=== PATIENT | female | born 1950 | race Caucasian/White ===

== ENCOUNTER → 2016-07-17 | Outpatient (CLI) | payer MEDICARE, OTHER ==
[2016-07-17 11:04] LABS: Blood Urea Nitrogen 15 mg/dL (7-17); Non-African American GFR(MDRD) >60 (>60 ml/min/1.73 sqM)
--- NOTE | 2016-07-17 12:35 | CT ---
EXAMINATION TYPE: CT Chest Abd Pelvis w con DATE OF EXAM: 07/17/2016 12:16 PM COMPARISON: CT CAP July 27, 2015 HISTORY: Patient in for follow up on breast cancer, taking oral cancer chemotherapy drug CT DLP: 2080 mGycm Automated exposure control for dose reduction was used. CONTRAST: CT scan of the chest, abdomen and pelvis is performed with Oral Contrast and with IV Contrast, patien t injected with 100 mL of Omnipaque 300. FINDINGS: LUNGS: The lungs are grossly clear, there is no concerning parenchymal mass or nodule identified. T here is no pleural effusion or pneumothorax seen. The tracheobronchial tree is patent. MEDIASTINUM: There are no greater than 1 cm hilar or mediastinal lymph nodes. No cardiomegaly or pe ricardial effusion is seen. OTHER: Surgical changes from left-sided mastectomy are redemonstrated with absent left breast and le ft axillary surgical clips, additional clips medially in left chest wall are present. There is interv al removal of left breast collapsed implant. Slightly prominent fibroglandular tissue medially and in feriorly in right breast on image 32 is unchanged from prior exam. No new suspicious bilateral axilla ry adenopathy is present. LIVER/GB: No significant abnormality is appreciated. PANCREAS: No significant abnormality is seen. SPLEEN: No significant abnormality is seen. ADRENALS: No significant abnormality is seen. KIDNEYS: No significant abnormality is seen. BOWEL: The oral contrast reaches level of the distal left colon. There is no suspicious small or lar ge bowel dilatation seen. There may be some polyps in the second portion of duodenum near ampulla see n best on coronal image 47 for reference. Some diverticula are seen in the left and the sigmoid colon . No acute diverticulitis is present. REPRODUCTIVE ORGANS: No gross abnormality seen. LYMPH NODES: No greater than 1 cm abdominal or pelvic lymph nodes are appreciated. OSSEOUS STRUCTURES: Moderate to advanced degenerative changes in both hips with spurring as well as s ubchondral cystic change, and axial joint space loss is redemonstrated. There is marked disc space na rrowing with vacuum disc phenomenon at lumbosacral junction. There is moderate multilevel spurring in the midthoracic spine. OTHER: There is moderate sized fat-containing umbilical hernia redemonstrated IMPRESSION: No worrisome mass or adenopathy is seen to suggest neoplastic recurrence.
== END | disposition home or self-care (01) ==
LOC: RADCTMAIN 10:18
PROVIDERS: ATTEND Internal Medicine Hematology & Oncology
DX: C50.512 Malignant neoplasm of lower-outer quadrant of left female breast (principal)
CPT/HCPCS: 82565; 84520; 71260; 74177; 36415; Q9967

== ENCOUNTER → 2017-04-19 | Outpatient (CLI) | payer MEDICARE, OTHER ==
--- NOTE | 2017-04-19 13:30 | MM ---
Reason for exam: additional evaluation requested from prior study. Last mammogram was performed 1 year ago. History: Patient is postmenopausal and has history of breast cancer at age 64. Family history of breast cancer in 2 maternal aunts. Malignant US biopsy breast VAD LT of the left breast, March 29, 2015. Malignant US biopsy breast add'l VAD LT of the left breast, March 29, 2015. Mastectomy of the left breast, 2014. Chemotherapy, 2014. Radiation therapy of the left breast, 2014. Benign ultrasound-guided core biopsy, 2006. Excisional biopsy of the right breast. Took hormonal contraceptives for 14 years beginning at age 19. Taking antineoplastic for 2 years beginning at age 64. Physical Findings: Nurse did not find any significant physical abnormalities on exam. MG 3D Diag Mammo W/Cad RT CC and MLO view(s) were taken of the right breast. Prior study comparison: April 18, 2016, right breast MG 3d diag mammo w/cad RT. March 29, 2015, left breast MG diagnostic mammo LT wo CAD. The breast tissue is heterogeneously dense. This may lower the sensitivity of mammography. No suspicious calcifications are seen. No significant new findings when compared with previous films. These results were verbally communicated with the patient and result sheet given to the patient on 04/19/17. ASSESSMENT: Benign, BI-RAD 2 RECOMMENDATION: Follow-up diagnostic mammogram of the right breast in 1 year.
== END | disposition home or self-care (01) ==
LOC: RADMAMWWP 12:35
PROVIDERS: ATTEND Internal Medicine Hematology & Oncology
DX: Z08 Encounter for follow-up examination after completed treatment for malignant neoplasm (principal); Z85.3 Personal history of malignant neoplasm of breast
CPT/HCPCS: G0206; G0279

== ENCOUNTER → 2017-07-16 | Outpatient (CLI) | payer MEDICARE, OTHER ==
[2017-07-16 14:14] LABS: Blood Urea Nitrogen 15 mg/dL (7-17)
--- NOTE | 2017-07-16 15:26 | CT ---
EXAMINATION TYPE: CT ChestAbdPelvis w con DATE OF EXAM: 07/16/2017 COMPARISON: 07/17/2016 HISTORY: Follow up Breast cancer CT DLP: 1322.8 mGycm Automated exposure control for dose reduction was used. CONTRAST: CT scan of the chest, abdomen and pelvis is performed with Oral Contrast and with IV Contrast, patien t injected with 100 mL of Omnipaque 300. FINDINGS: LUNGS: The lungs are grossly clear, there is no concerning parenchymal mass or nodule identified. T here is no pleural effusion or pneumothorax seen. The tracheobronchial tree is patent. MEDIASTINUM: There are no greater than 1 cm hilar or mediastinal lymph nodes. No pericardial effusi on is seen. OTHER: Surgical changes from left-sided mastectomy are redemonstrated with absent left breast and le ft axillary surgical clips, additional clips medially in left chest wall are present. LIVER/GB: No significant abnormality is appreciated. PANCREAS: No significant abnormality is seen. SPLEEN: No significant abnormality is seen. ADRENALS: No significant abnormality is seen. KIDNEYS: No significant abnormality is seen. BOWEL: Diverticulosis of the colon noted.. LYMPH NODES: No greater than 1 cm abdominal or pelvic lymph nodes are appreciated. Stable shotty jim opathy in the left cardiophrenic angle. OSSEOUS STRUCTURES: Multilevel degenerative change of the spine noted. Arthropathy of the hips seen. Sclerosis of the pars of L5 suggestive of early pars defects and stress injury. No spondylolisthesis. . OTHER: Moderate to advanced degenerative changes in both hips with spurring as well as subchondral cy stic change, and axial joint space loss is redemonstrated. There is marked disc space narrowing with vacuum disc phenomenon at lumbosacral junction. There is moderate multilevel spurring in the midthora cic spine. Fat-containing anterior abdominal wall hernia noted. Small cyst in the left ovarian region measuring 1.3 cm retrospectively stable. IMPRESSION: 1. No diagnostic evidence of metastases. 2. Stable cyst in the left adnexa likely ovarian measuring 1.3 cm
== END | disposition home or self-care (01) ==
LOC: RADCTMAIN 13:24
PROVIDERS: ATTEND Internal Medicine Hematology & Oncology
DX: Z03.89 Encounter for observation for other suspected diseases and conditions ruled out (principal); C50.512 Malignant neoplasm of lower-outer quadrant of left female breast; N83.202 Unspecified ovarian cyst, left side; Z88.0 Allergy status to penicillin; Z88.8 Allergy status to other drugs, medicaments and biological substances
CPT/HCPCS: 82565; 84520; 71260; 74177; 36415; Q9967

== ENCOUNTER → 2017-10-18 | Outpatient (CLI) | payer MEDICARE, OTHER ==
--- NOTE | 2017-10-18 11:04 | BD ---
EXAMINATION TYPE: MG DEXA axial skeleton. DATE OF EXAM: 10/18/2017 COMPARISON: NONE CLINICAL HISTORY: 67 YR OLD FEMALE.....ICD-10 CODE: C50.512 BREAST CA, Z79.890 POST OLAF/HRT Height: 65.2 Weight: 197 FRAX RISK QUESTIONS: Alcohol (3 or more units per day): NO Family History (Parent hip fracture): NO Glucocorticoids (More than 3mos): NO (Ex: prednisone, prednisolone, methylprednisolone, dexamethasone, and hydrocortisone). History of Fracture in Adulthood: NO Secondary Osteoporosis: NO 1. Type 1 Diabetes: NO 2. Hyperthyroidism: NO 3. Menopause before 45: NO 4. Malnutrition: NO 5. Chronic liver disease: NO Rheumatoid Arthritis: NO Current Tobacco Use: NO RISK FACTORS HISTORY OF: Family History of Osteoporosis: NONE KNOWN Active: NOT REALLY Diet low in dairy products/other sources of calcium: NO Postmenopausal woman: YES AT AGE 57 YRS OLD Lost more than 2 inches in height since high school: YES Hyperparathyroidism: NO Adrenal Insufficiency: NO MEDICATIONS: Additional Medications: HX OF CHEMO AND RADIATION, FEMARA, BP MEDS, XANAX, STATINS FOR CHOLESTEROL, R EFLUX MEDS, NSAIDS, Additional History: HX OF LT BREAST CA, ARTHRITIS EXAM MEASUREMENTS: Bone mineral densitometry was performed using the Cylance System. Bone mineral density as measured about the Lumbar spine is: ----- L1-L4(G/cm2): 1.259 T Score Values are as follows: ----- L1: 0.8 ----- L2: 0.9 ----- L3: 0.5 ----- L4: 0.3 ----- L1-L4: 0.7 Bone mineral density FIRST BONE DENSITY AT [facility] Bone mineral density about the R hip (g/cm2): 0.962 Bone mineral density about the L hip (g/cm2): 1.040 T Score values are as follows: -----R Neck: -0.5 -----L Neck: 0.0 -----R Total: -0.4 -----L Total: 0.3 Bone mineral density FIRST BONE DENSITY AT [facility] FRAX%S: THERE IS A 7.1% CHANCE OF A MAJOR OSTEOPOROTIC FX AND A 0.4% FOR HIP FX......PROBABILITY O F FX IN 10 YRS TIME IMPRESSION: Normal (Values between +1 and -1 indicate normal bone mass). Consider repeating this study in 5 year s or sooner if there is some new clinical indication. NOTE: T-SCORE=SD OF THE YOUNG ADULT MEAN.
== END | disposition home or self-care (01) ==
LOC: RADBDWWP 09:41
PROVIDERS: ATTEND Internal Medicine Hematology & Oncology
DX: C50.512 Malignant neoplasm of lower-outer quadrant of left female breast (principal); N95.1 Menopausal and female climacteric states; Z79.890 Hormone replacement therapy
CPT/HCPCS: 77080

== ENCOUNTER → 2018-04-22 | Outpatient (CLI) | payer MEDICARE, OTHER ==
--- NOTE | 2018-04-22 13:17 | MM ---
Reason for exam: additional evaluation requested from prior study. Last mammogram was performed 1 year ago. History: Patient is postmenopausal and has history of breast cancer at age 64. Family history of breast cancer in 2 maternal aunts. Malignant US biopsy breast VAD LT of the left breast, March 29, 2015. Malignant US biopsy breast add'l VAD LT of the left breast, March 29, 2015. Mastectomy of the left breast, 2014. Chemotherapy, 2014. Radiation therapy of the left breast, 2014. Benign ultrasound-guided core biopsy, 2006. Excisional biopsy of the right breast. Took hormonal contraceptives for 14 years beginning at age 19. Taking antineoplastic for 3 years beginning at age 64. Physical Findings: Nurse Summary: 1cm nodule in the right breast at 12 o'clock (nurse mj). MG 3D Diag Mammo W/Cad RT CC and MLO view(s) were taken of the right breast. Prior study comparison: April 19, 2017, right breast MG 3d diag mammo w/cad RT. April 18, 2016, right breast MG 3d diag mammo w/cad RT. The breast tissue is heterogeneously dense. This may lower the sensitivity of mammography. 11-12 o'clock palpable marker. Some underlying focal asymmetries appear more defined on 3D but are not clearly seen on lateral. Ultrasound recommended. These results were verbally communicated with the patient and result sheet given to the patient on 04/22/18. ASSESSMENT: Incomplete: need additional imaging evaluation, BI-RAD 0 RECOMMENDATION: Ultrasound of the right breast.
--- NOTE | 2018-04-22 13:20 | USB ---
Reason for exam: additional evaluation requested from abnormal screening. History: Patient is postmenopausal and has history of breast cancer at age 64. Family history of breast cancer in 2 maternal aunts. Malignant US biopsy breast VAD LT of the left breast, March 29, 2015. Malignant US biopsy breast add'l VAD LT of the left breast, March 29, 2015. Mastectomy of the left breast, 2014. Chemotherapy, 2015. Radiation therapy of the left breast, 2014. Benign ultrasound-guided core biopsy, 2006. Excisional biopsy of the right breast. Took hormonal contraceptives for 14 years beginning at age 19. Taking antineoplastic for 3 years beginning at age 64. US Breast Limited RT Right limited breast ultrasound including focal area of concern, retroareolar and axilla demonstrates a 3 x 2 x 3mm oval, hypoechoic lesion too small to characterize at 9 o'clock, possibly a tiny cyst for which a 6 month follow up is recommended, a 3 x 2 x 3mm benign, cystic lesion at 10 o'clock, a 3 x 2 x 3mm benign, cystic lesion at 12 o'clock, a 3 x 3 x 3mm benign, cystic lesion at the posterior nipple and benign cyst at the palpable site. These results were verbally communicated with the patient and result sheet given to the patient on 04/22/18. ASSESSMENT: Probably benign, BI-RAD 3 RECOMMENDATION: Ultrasound of the right breast in 6 months.
== END | disposition home or self-care (01) ==
LOC: RADMAMWWP 10:39
PROVIDERS: ATTEND Internal Medicine Hematology & Oncology
DX: Z08 Encounter for follow-up examination after completed treatment for malignant neoplasm (principal); R92.8 Other abnormal and inconclusive findings on diagnostic imaging of breast; Z85.3 Personal history of malignant neoplasm of breast
CPT/HCPCS: 77065; 76642; G0279; 77061

== ENCOUNTER → 2018-06-13 | Outpatient (CLI) | payer MEDICARE, OTHER ==
--- NOTE | 2018-06-13 12:56 | CT ---
EXAMINATION TYPE: CT ChestAbdPelvis w con DATE OF EXAM: 06/13/2018 COMPARISON: NONE HISTORY: Follow up breast cancer. CT DLP: 1347.7 mGycm. Automated Exposure Control for Dose Reduction was Utilized. CONTRAST: CT scan of the thorax, abdomen and pelvis is performed with IV Contrast, patient injected with 100 mL of Isovue 300. FINDINGS: LUNGS: 2 mm groundglass density is seen at the medial right lung base on series 4 image 48, similar t o the prior exam likely related to atelectasis rather than pulmonary nodule. The lungs are grossly cl ear, there is no concerning parenchymal mass identified. There is no pleural effusion or pneumothor ax seen. The tracheobronchial tree is patent. MEDIASTINUM: There are no greater than 1 cm hilar or mediastinal lymph nodes. Nonenlarged epiphrenic lymph node is again noted. No pericardial effusion is seen. OTHER: There is a left breast mastectomy and axillary node dissection. There is strand-like opacity o verlying the anterior compartment of the left upper extremity such as on series 3 image 13 similar to the prior however there is a new 6 mm short axis lymph node just lateral to the subscapularis on ser ies 3 image 20. LIVER/GB: No significant abnormality is appreciated. No focal hepatic lesion is seen. No cholelithias is. PANCREAS: No significant abnormality is seen. No ductal dilatation. SPLEEN: No significant abnormality is seen. No splenomegaly. ADRENALS: No significant abnormality is seen. No nodularity or thickening. KIDNEYS: Kidneys enhance and excrete symmetrically. BOWEL: There is scattered colonic diverticulosis. No pericolonic fat stranding. No dilated large or s mall bowel. GENITAL ORGANS: Hypoattenuated approximately 2.0 cm left adnexal lesion on series 3 image 99 likely r epresents a small cyst. LYMPH NODES: No greater than 1cm abdominal or pelvic lymph nodes are appreciated. OSSEOUS STRUCTURES: Advanced arthropathy of the femoral acetabular joints. OTHER: Mild calcific atheromatous changes are seen of the abdominal aorta and its branches. There is redemonstration of a small ventral hernia. IMPRESSION: 1. New far posterior 6 mm short axis left axillary lymph node. Given the prior left breast cancer con sideration for PET/CT could be given. 2. Probable 2.0 cm left adnexal ovarian cyst, however this could be confirmed with pelvic ultrasound given the interval increase in size from the prior 2018. 3. No new evidence of visceral or osseous metastasis within the chest, abdomen, or pelvis.
== END | disposition home or self-care (01) ==
LOC: RADCTMAIN 10:25
PROVIDERS: ATTEND Internal Medicine Hematology & Oncology
DX: C50.512 Malignant neoplasm of lower-outer quadrant of left female breast (principal); Z88.0 Allergy status to penicillin; Z88.6 Allergy status to analgesic agent
CPT/HCPCS: 82565; 84520; 71260; 74177; 36415; Q9967

== ENCOUNTER → 2018-07-31 | Outpatient (CLI) | payer MEDICARE, OTHER ==
[2018-07-31 15:16] LABS: ALT 34 U/L (9-52); AST 28 U/L (14-36); Albumin 4.4 g/dL (3.5-5.0); Alkaline Phosphatase 65 U/L (38-126); Anion Gap 8 mmol/L; Blood Urea Nitrogen 16 mg/dL (7-17); Calcium 9.8 mg/dL (8.4-10.2); Carbon Dioxide 30 mmol/L (22-30); Chloride 100 mmol/L (98-107); Glucose 94 mg/dL (74-99); Potassium 4.4 mmol/L (3.5-5.1); Sodium 138 mmol/L (137-145); Total Bilirubin 1.2 mg/dL (0.2-1.3); Total Protein 7.1 g/dL (6.3-8.2)
[2018-07-31 15:26] LABS: INR 0.9 (<1.2); Partial Thromboplastin Time 22.7 sec (22.0-30.0); Prothrombin Time 10.1 sec (9.0-12.0)
[2018-07-31 15:29] LABS: HCT 41.5 % (34.0-46.0); HGB 13.3 gm/dL (11.4-16.0); MCH 29.3 pg (25.0-35.0); MCV 91.5 fL (80.0-100.0); Mean Platelet Volume 8.2; Platelet Count 174 k/uL (150-450); RBC 4.53 m/uL (3.80-5.40); RDW 13.5 % (11.5-15.5); WBC 4.8 k/uL (3.8-10.6)
[2018-07-31 15:31] LABS: Appearance,Urine Clear (Clear); Bilirubin,Urine Negative (Negative); Blood,Urine Negative (Negative); Color,Urine Light Yellow; Glucose,Urine (UA) Negative (Negative); Ketones,Urine Negative (Negative); Leukocyte Esterase,Urine Negative (Negative); Nitrite,Urine Negative (Negative); PH, Urine 6.5 (5.0-8.0); Protein,Urine Negative (Negative); Specific Gravity,Urine 1.006 (1.001-1.035); Urobilinogen,Urine <2.0 mg/dL (<2.0)
== END | disposition home or self-care (01) ==
LOC: LABPAT 13:40
PROVIDERS: ATTEND Orthopaedic Surgery
DX: Z01.818 Encounter for other preprocedural examination (principal); Z01.812 Encounter for preprocedural laboratory examination; M16.11 Unilateral primary osteoarthritis, right hip
CPT/HCPCS: 80053; 81003; 85027; 85610; 85730; 87070; 93005

== ENCOUNTER → 2018-08-09 | Outpatient (CLI) | payer MEDICARE, OTHER | LOC: LABPAT 13:03 | PROVIDERS: ATTEND Orthopaedic Surgery | DX: Z01.812 Encounter for preprocedural laboratory examination (principal); M16.11 Unilateral primary osteoarthritis, right hip | CPT/HCPCS: 86850; 86900; 86901 ==

== ENCOUNTER 2018-08-19 10:32 | Inpatient (IN) | payer MEDICARE, OTHER ==
[~2018-08-19 10:32] MED LIST: LIDOCAINE 1% 20 ML VIAL (10MG/ML) FOR IV START INTRADERMA PRN; TRANEXAMIC ACID 1,000 MG in SODIUM CHLORIDE 0.9% 100 ML IVPB ONE; ceFAZolin IN SWFI 2 GM/20 ML SYRINGE IVP ONE; fentaNYL (PF) 50 MCG/ML 2 ML AMP IV PRN
[2018-08-19 11:20] LABS: Glucose,Whole Blood 113 mg/dL (75-99)
[2018-08-19] MEDS: LACTATED RINGERS 1,000 ML IV SCH ×2 (11:20→13:37)
[2018-08-19] MEDS: ONDANSETRON 4 MG/2 ML VIAL IVP ONE ×2 (11:41→16:16)
[2018-08-19] MEDS: MELOXICAM 7.5 MG TAB PO ONE ×2 (11:41→16:16)
[2018-08-19] MEDS: ACETAMINOPHEN TAB 500 MG TAB PO ONE ×2 (11:41→16:15)
[2018-08-19] MEDS ORDERED: ROPIVACAINE 246.25 MG, EPINEPHrine 0.5 MG, KETOROLAC 30 MG, cloNIDine HCL/PF 80 MCG, WA... MISCELLANE ONE ×5 (11:51)
[2018-08-19] MEDS ORDERED: MAGNESIUM HYDROXIDE 2,400 MG/10 ML CUP PO PRN (11:54)
[2018-08-19] MEDS ORDERED: HYDROmorphone 0.5 MG/0.5 ML SYRINGE IVP PRN ×3 (11:54)
[2018-08-19] MEDS ORDERED: hydrOXYzine PAMOATE 25 MG CAP PO PRN (11:54)
[2018-08-19] MEDS ORDERED: ONDANSETRON 4 MG/2 ML VIAL IVP PRN (11:54)
[2018-08-19] MEDS ORDERED: HYDROcodone/APAP 5-325MG 1 EACH TAB PO PRN ×2 (11:54)
[2018-08-19] MEDS ORDERED: NALOXONE 0.4 MG/ML 1 ML VIAL IV PRN (11:54)
[2018-08-19] MEDS ORDERED: DIAZEPAM 5 MG TAB PO PRN (11:54)
[2018-08-19] MEDS ORDERED: DEXAMETHASONE SOD PHOSPHATE 10 MG/ML 1 ML VIAL IV ONE (12:02)
[2018-08-19] MEDS ORDERED: FAMOTIDINE 20 MG/2 ML VIAL IVP ONE (12:03)
[2018-08-19] MEDS ORDERED: HEPARIN SODIUM,PORCINE 10,000 UNIT/ML 1 ML VIAL ONE (13:37)
[2018-08-19] MEDS ORDERED: SODIUM CHLORIDE 0.9% 100 ML BAG ONE (13:37)
[2018-08-19] MEDS ORDERED: PROPOFOL 10 MG/ML 20 ML VIAL IV ONE (13:37)
[2018-08-19] MEDS ORDERED: PHENYLEPHRINE-0.9% NACL SYG 1 MG/10 ML SYRINGE ONE (13:37)
[2018-08-19] MEDS ORDERED: SODIUM CHLORIDE 0.9% IRRIG 1,000 ML BTL IRRIGATION ONE (13:37)
[2018-08-19] MEDS ORDERED: MIDAZOLAM 2 MG/2 ML VIAL ONE (13:37)
[2018-08-19] MEDS ORDERED: TRANEXAMIC ACID 1,000 MG/10 ML VIAL ONE (13:37)
[2018-08-19] MEDS ORDERED: ceFAZolin 3,000 MG in SODIUM CHLORIDE 0.9% IRRIGATIO 3,000 ML IRRIGATION ONE (14:06)
[2018-08-19] MEDS ORDERED: LACTATED RINGERS 1,000 ML IV ONE ×2 (14:50→15:25)
--- NOTE | 2018-08-19 15:11 | P.OP ---
Date of Procedure: 08/19/18 Preoperative Diagnosis: Severe osteoarthritis right hip Postoperative Diagnosis: Severe osteoarthritis right hip Procedure(s) Performed: Right total hip arthroplasty with a direct anterior approach Implants: Edwards and nephew Polarstem size 4 standard Edwards & Nephew R3, 3 hole acetabular shell, 52 mm Edwards & Nephew reflection 6.5 mm cancellus screw, 20 mm, 25 mm Edwards & Nephew R3, XLPE 20 acetabular liner Edwards & Nephew Oxinium femoral head 36 m, +0 All components were press-fit. The articulation is Oxinium on polyethylene. Anesthesia: spinal Surgeon: Giovanni Phillips Manager Animal #1: Adry Mayer Estimated Blood Loss (ml): 150 (66 mL returned with Cell Saver) Pathology: other (Femoral head) Condition: stable Disposition: PACU Indications for Procedure: After failure of conservative treatment we discussed the surgical and nonsurgical treatment options at length. Patient wishes to proceed with a total hip arthroplasty with a direct anterior approach. Complications specific to this procedure were discussed at length, including but not limited to infection, leg length discrepancy, dislocation, and nerve injury. Patient is aware of all these complications and informed consent was obtained Operative Findings: The operative findings are consistent with severe osteoarthritis of the right hip Description of Procedure: Patient was seen and evaluated in the preoperative area, consent was reviewed, and the surgical site was marked with a skin marker. Patient was then brought to the operating room and given prophylactic antibiotics intravenously. 1 g of Tranexamic acid was also given. A spinal anesthetic was administered by the anesthesia department. The patient was then placed on the Galloway table with the bony prominences well-padded. The hip area was then prepped and draped in usual sterile fashion. A universal timeout was then performed, which confirmed the patient's name, surgical site, ALLERGIES, and procedure being performed. Next the incision site was located at 1 cm distal and 1 cm lateral to the anterior superior iliac spine. The skin and subcutaneous tissues were sharply incised. Incision was carefully dissected down to the fascia overlying the tensor fascia andrew muscle. This fascia was then incised in line with the incision. Next, using blunt finger dissection, the tensor fascia andrew muscle was dissected off its investing fascia. The muscle was then carefully retracted laterally with a cobra retractor over the lateral neck of the femur. Next, the circumflex vessels were identified and cauterized using the AquaMantis device. The anterior hip capsule was then exposed. The capsule was then opened and an inverted T fashion. Cobra retractors were then placed intracapsularly. The proximal femur was then visualized. The femoral neck was then osteotomized appropriate level above the lesser trochanter. Small amount of traction was placed with the Galloway table. A small wedge of bone was then removed from the remaining femoral head. Next, using a corkscrew femoral head was easily removed from the acetabulum. On gross visual inspection, the femoral head had complete loss of articular cartilage in multiple periarticular osteophytes. Attention was then turned to the acetabulum. the acetabulum was exposed and any remaining labrum was excised. Sequential reaming of the acetabulum was performed using fluoroscopic guidance. When the appropriate size was reached, a trial was then placed. The position and fit of the trial was checked with fluoroscopy. The trial was then removed. Then, using fluoroscopic guidance, the final implant was impacted at 20 of anteversion and 40 of abduction, and fully seated in the acetabulum. 2 screws were then placed in the acetabulum. Again fluoroscopy was used to check position of the screws. Next, the liner was then impacted, with a 20 elevated liner located in the anterior superior quadrant. Component locking was confirmed. Attention was then directed to the femur. With the aid of the Galloway table, the femur was externally rotated to approximately 130, extended, and abducted under the opposite leg. A side hook was then placed under the proximal femur, and the side hook elevator was used to elevate the proximal femur. Retractors were then placed. A capsular release was performed, as well as a release of the conjoined tendon, which afforded excellent visualization of the proximal femur. Next, a box osteotome was used to lateralize the proximal femur. A launderer hand was then used to locate the femoral canal. Sequential broaching was then performed with appropriate size which afforded excellent fixation in the proximal femur. A trial was then placed with appropriate head and neck, and the hip was gently reduced with the aid of the Galloway table. Fluoroscopy was then used to check position of the components, as well as to ensure equal leg lengths. The hip was then gently dislocated and the trials were then removed. Final implants were then impacted and the hip was again reduced. Final fluoroscopic x-rays confirmed that the components were in anatomic position, as well as equal leg lengths. The hip was also taken through range of motion, and found to be stable. The hip was then copiously irrigated with antibiotic solution with pulsatile lavage. The hip was then irrigated with Irrisept solution. The soft tissues were then injected with a ropivacaine solution, which consisted of 246.25 mg of ropivacaine, 0.5 mg of epinephrine, 30 mg of Toradol, 80 g of clonidine, and 48.45 mL of sterile water, for a total of 100 mL of fluid injected. A second dose of 1 g of Tranexamic acid was also given. the fascia was then closed with 2-0 strata fix suture. The subcutaneous tissue was closed with 3-0 Vicryl. The subcuticular tissue was closed with 3-0 strata fix suture. The skin was then closed with Dermabond glue and a sterile silver dressing. The patient was then transferred to the recovery room in stable condition. The educational assistant CARYN Preston was required due to the complexity of surgery, and the need for skilled surgical services assistant for positioning, draping, exposure, retraction, and closure of the wound.
[2018-08-19] MEDS ORDERED: KETOROLAC 30 MG/ML 1 ML VIAL IVP ONE (15:35)
--- NOTE | 2018-08-19 16:06 | XR ---
Right hip HISTORY: Status post right hip arthroplasty Single frontal view of the right hip submitted. Patient is status post right hip arthroplasty. There is anatomic alignment. Lucency in the soft tissu es compatible with postop change. IMPRESSION: Orthopedic follow-up
[2018-08-19] MEDS: SODIUM CHLORIDE 0.9% 1,000 ML IV SCH (16:16)
[2018-08-19 16:41] VITALS: BMI 31.2
--- NOTE | 2018-08-19 16:47 | FL ---
Fluoroscopy HISTORY: Anterior hip replacement 52 seconds fluoroscopy time supplied to the referring clinician. 2 intraoperative C-arm images docum ent the procedure. See dictated report from orthopedic surgery.
--- NOTE | 2018-08-19 16:52 | XR ---
Limited right hip HISTORY: Right hip arthroplasty 2 intraoperative C-arm images document the procedure
[2018-08-19 17:07] LABS: Glucose,Whole Blood 128 mg/dL (75-99)
[2018-08-19] MEDS ORDERED: traMADol 50 MG TAB PO PRN ×3 (19:14→19:38)
[2018-08-19] MEDS: ceFAZolin IN SWFI 2 GM/20 ML SYRINGE IVP SCH (20:16)
[2018-08-19] MEDS: ASPIRIN 325 MG TAB PO SCH (20:16)
[2018-08-19] MEDS ORDERED: SENNOSIDES-DOCUSATE SODIUM 1 EACH TAB PO SCH (21:00)
[2018-08-20] MEDS: SODIUM CHLORIDE 0.9% 1,000 ML IV SCH ×2 (04:58→07:01)
[2018-08-20] MEDS: LACTATED RINGERS 1,000 ML IV SCH (04:58)
[2018-08-20] MEDS: ceFAZolin IN SWFI 2 GM/20 ML SYRINGE IVP SCH (05:17)
[2018-08-20 06:55] VITALS: BP 109/74; PULSE 82; RESP 16; TEMP 97.9
[2018-08-20] MEDS: ASPIRIN 325 MG TAB PO SCH (07:54)
[2018-08-20 08:12] LABS: Basophils % (A) 0 %; Eosinophils # (A) 0.1 k/uL (0-0.7); Eosinophils % (A) 1 %; HCT 34.3 % (34.0-46.0); HGB 11.5 gm/dL (11.4-16.0); Lymphocytes % (A) 13 %; MCH 30.8 pg (25.0-35.0); MCHC 33.6 g/dL (31.0-37.0); MCV 91.7 fL (80.0-100.0); Mean Platelet Volume 8.1; Monocytes # (A) 0.5 k/uL (0-1.0); Monocytes % (A) 6 %; Neutrophils # (A) 5.9 k/uL (1.3-7.7); Neutrophils % (A) 79 %; Platelet Count 132 k/uL (150-450); RBC 3.74 m/uL (3.80-5.40); RDW 13.5 % (11.5-15.5); WBC 7.6 k/uL (3.8-10.6)
[2018-08-20] MEDS ORDERED: MELOXICAM 7.5 MG TAB PO SCH (09:00)
[2018-08-20] MEDS ORDERED: ACETAMINOPHEN TAB 325 MG TAB PO PRN (09:52)
--- NOTE | 2018-08-20 11:32 | P.DS ---
Providers Date of admission: 08/19/18 10:32 Expected date of discharge: 08/20/18 Attending physician: Giovanni Phillips Consults: 08/19/18 11:54 Consult Physician Routine Consulting Provider: Magen Tse Consult Reason/Comments: medical management Do you want consulting provider notified?: Yes Primary care physician: Ishaan Locke - Discharge Diagnosis(es) (1) Osteoarthritis of right hip Current Visit: Yes Status: Acute (2) Status post total replacement of right hip Current Visit: Yes Status: Acute Hospital Course: This is a 68-year-old female with known history of degenerative arthritis of the right hip. The patient presents for evaluation. After discussion and consideration patient elects to proceed with total hip arthroplasty. The patient is seen preoperatively by Dr. Phillips and medically cleared for surgery by their primary care physician. Patient is admitted to [facility] on 08/19/2018 for total hip arthroplasty. The procedures performed without complication or sequelae. The patient is doing well postoperatively. Labs and vital signs are stable on day of discharge. On day of discharge patient's hip incision is healing well. There is minimal erythema. There is no drainage noted at this time. There is minimal soft tissue swelling to the hip and thigh. Patient has full foot and ankle motion without difficulty or pain. Neurovascular status to the right lower extremity is intact. Patient is discharged home in good condition. Please see med rec for accurate list of home medications. Plan - Discharge Summary Discharge Rx Participant: No New Discharge Prescriptions: New Aspirin 325 mg PO BID #60 tab Sennosides [Senokot] 1 tab PO BID #60 tablet traMADol HCl [Ultram] 1 - 2 tab PO Q6H PRN #56 tab PRN Reason: Pain No Action Pravastatin Sodium 40 mg PO HS Potassium Chloride [Klor-Con 10] 10 meq PO DAILY Hydrochlorothiazide [Hydrodiuril] 25 mg PO QAM Metoprolol Tartrate [Lopressor] 50 mg PO BID ALPRAZolam [Xanax] 0.5 mg PO BID PRN PRN Reason: Anxiety Ibuprofen [Motrin] 600 mg PO Q6HR PRN #100 tab PRN Reason: Pain Letrozole [Femara] 2.5 mg PO DAILY Cetirizine HCl [Zyrtec] 10 mg PO DAILY PRN PRN Reason: sinus issues Acetaminophen [Tylenol Extra Strength] 1,000 mg PO ONCE Discharge Medication List Hydrochlorothiazide [Hydrodiuril] 25 mg PO QAM 04/08/15 [History] Metoprolol Tartrate [Lopressor] 50 mg PO BID 04/08/15 [History] Potassium Chloride [Klor-Con 10] 10 meq PO DAILY 04/08/15 [History] Pravastatin Sodium 40 mg PO HS 04/08/15 [History] ALPRAZolam [Xanax] 0.5 mg PO BID PRN 05/31/15 [History] Ibuprofen [Motrin] 600 mg PO Q6HR PRN #100 tab 06/11/15 [Rx] Letrozole [Femara] 2.5 mg PO DAILY 02/02/16 [History] Cetirizine HCl [Zyrtec] 10 mg PO DAILY PRN 08/12/18 [History] Acetaminophen [Tylenol Extra Strength] 1,000 mg PO ONCE 08/19/18 [History] Aspirin 325 mg PO BID #60 tab 08/20/18 [Rx] Sennosides [Senokot] 1 tab PO BID #60 tablet 08/20/18 [Rx] traMADol HCl [Ultram] 1 - 2 tab PO Q6H PRN #56 tab 08/20/18 [Rx] Follow up Appointment(s)/Referral(s): Ishaan Locke MD [Primary Care Provider] - 08/28/18 9:00 am Giovanni Phillips DO [Doctor of Osteopathic Medicine] - 08/30/18 10:20 am Activity/Diet/Wound Care/Special Instructions: Weightbearing as tolerated with walker. Leave dressing intact. Dressing may be removed by home care nurse or by patient in 10 days. May shower with dressing on. Please follow-up with [facility] in 2 weeks and call with any questions or concerns, . Discharge Disposition: HOME WITH HOME HEALTH SERVICES
--- NOTE | 2018-08-20 13:48 | P.CONS ---
History of Present Illness - Reason for Consult recommendations regarding antidepressive medications - History of Present Illness 62-year-old pleasant female underwent right hip Arthroplasty direct anterior approach, clinically doing well after surgery did pass gas did not move her bowel yet. Patient is bit hypotensive which is expected post surgery. Patient etc. presented in metoprolol as stated and metoprolol and hold hydrochlorothiazide for couple days or more if her blood pressure continues to be low. Patient denied dizziness nausea vomiting abdominal pain fever chills dysuria cough. Review of Systems REVIEW OF SYSTEMS: CONSTITUTIONAL: No fever, no malaise, no fatigue. HEENT: No recent visual problems or hearing problems. Denied any sore throat. CARDIOVASCULAR: No chest pain, orthopnea, PND, no palpitations, no syncope. PULMONARY: No shortness of breath, no cough, no hemoptysis. GASTROINTESTINAL: No diarrhea, no nausea, no vomiting, no abdominal pain. NEUROLOGICAL: No headaches, no weakness, no numbness. HEMATOLOGICAL: Denies any bleeding or petechiae. GENITOURINARY: Denies any burning micturition, frequency, or urgency. MUSCULOSKELETAL/RHEUMATOLOGICAL: Denies any joint pain, swelling, or any muscle pain. ENDOCRINE: Denies any polyuria or polydipsia. The rest of the 14-point review of systems is negative. Past Medical History Past Medical History: Cancer, Diabetes Mellitus, GERD/Reflux, Hyperlipidemia, Hypertension Additional Past Medical History / Comment(s): lt breast cancer 06/15/15, varicose veins, constipation,type II diabetic diet controlled History of Any Multi-Drug Resistant Organisms: None Reported Past Surgical History: Breast Surgery, Tubal Ligation Additional Past Surgical History / Comment(s): core biopsy - breast Mar [id number]. LT MASTECTOMY with lymph node removal developed infection after surgery Past Anesthesia/Blood Transfusion Reactions: Postoperative Nausea & Vomiting ( PONV) Additional Past Anesthesia/Blood Transfusion Reaction / Comm: CLAUSTROPHOBIA. daughter-ponv Past Psychological History: No Psychological Hx Reported Smoking Status: Never smoker Past Alcohol Use History: Occasional Past Drug Use History: None Reported - Past Family History Mother Family Medical History: No Reported History, Diabetes Mellitus Additional Family Medical History / Comment(s): states brother and father also both had diabetes. states father after knee surgery developed gangrene d/t lack of circulation and had amputation below knee Father Family Medical History: Diabetes Mellitus, Hypertension Additional Family Medical History / Comment(s): LEG AMPUTATED Brother(s) Family Medical History: Diabetes Mellitus Medications and Allergies Home Medications Medication Instructions Recorded Confirmed Type Hydrochlorothiazide [Hydrodiuril] 25 mg PO QAM 04/08/15 08/19/18 History Metoprolol Tartrate [Lopressor] 50 mg PO BID 04/08/15 08/19/18 History Potassium Chloride [Klor-Con 10] 10 meq PO DAILY 04/08/15 08/19/18 History Pravastatin Sodium 40 mg PO HS 04/08/15 08/19/18 History ALPRAZolam [Xanax] 0.5 mg PO BID PRN 05/31/15 08/19/18 History Ibuprofen [Motrin] 600 mg PO Q6HR PRN #100 tab 06/11/15 08/19/18 Rx Letrozole [Femara] 2.5 mg PO DAILY 02/02/16 08/19/18 History Cetirizine HCl [Zyrtec] 10 mg PO DAILY PRN 08/12/18 08/19/18 History Acetaminophen [Tylenol Extra 1,000 mg PO ONCE 08/19/18 08/19/18 History Strength] Aspirin 325 mg PO BID #60 tab 08/20/18 Rx Sennosides [Senokot] 1 tab PO BID #60 tablet 08/20/18 Rx traMADol HCl [Ultram] 1 - 2 tab PO Q6H PRN #56 tab 08/20/18 Rx Allergies Allergy/AdvReac Type Severity Reaction Status Date / Time adhesive Allergy Rash/Hives Verified 08/19/18 17:18 Penicillins Allergy Rash/Hives Verified 08/19/18 17:18 sulfamethoxazole Allergy Rash/Hives Verified 08/19/18 17:18 [From Bactrim] trimethoprim [From Bactrim] Allergy Rash/Hives Verified 08/19/18 17:18 codeine AdvReac Nausea & Verified 08/19/18 17:18 Vomiting hydrocodone bitartrate AdvReac Nausea & Verified 08/19/18 17:18 [From [place]] Vomiting prochlorperazine edisylate AdvReac jaw locked Verified 08/19/18 17:18 [From Compazine] prochlorperazine maleate AdvReac JAW LOCKED, Verified 08/19/18 17:18 [From Compazine] Physical Exam Vitals: Vital Signs Temp Pulse Pulse Resp BP Pulse Ox 08/20/18 06:56 16 08/20/18 06:54 97.9 F 82 16 109/74 95 08/20/18 04:00 15 08/20/18 00:14 97.5 F L 80 15 102/64 92 L 08/19/18 23:20 16 08/19/18 20:00 16 08/19/18 18:15 96 134/64 08/19/18 18:00 87 119/66 08/19/18 17:45 82 118/79 08/19/18 17:30 82 110/73 08/19/18 17:15 83 119/71 08/19/18 17:00 80 107/74 08/19/18 16:45 78 131/82 08/19/18 16:30 97.5 F L 89 16 114/73 94 L 08/19/18 16:05 79 16 105/65 97 08/19/18 15:50 76 16 111/61 96 08/19/18 15:35 80 16 124/62 98 08/19/18 15:22 76 16 124/62 97 Intake and Output 08/19/18 08/20/18 08/20/18 22:59 06:59 14:59 Intake Total 180 222 Balance 180 222 Intake: IV 0 Oral 180 222 Other: Voiding Method Toilet Toilet # Voids 1 1 1 PHYSICAL EXAMINATION: GENERAL: The patient is alert and oriented x3, not in any acute distress. Well developed, well nourished. HEENT: Pupils are round and equally reacting to light. EOMI. No scleral icterus. No conjunctival pallor. Normocephalic, atraumatic. No pharyngeal erythema. No thyromegaly. CARDIOVASCULAR: S1 and S2 present. No murmurs, rubs, or gallops. PULMONARY: Chest is clear to auscultation, no wheezing or crackles. ABDOMEN: Soft, nontender, nondistended, normoactive bowel sounds. No palpable organomegaly. MUSCULOSKELETAL: deferred to orthopedic surgery EXTREMITIES: No cyanosis, clubbing, or pedal edema. NEUROLOGICAL: Gross neurological examination did not reveal any focal deficits. SKIN: No rashes. Results CBC & Chem 7: 08/20/18 07:01 Labs: Abnormal Lab Results - Last 24 Hours (Table) 08/19/18 08/20/18 Range/Units 16:55 07:01 RBC 3.74 L (3.80-5.40) m/uL Plt Count 132 L (150-450) k/uL POC Glucose (mg/dL) 128 H (75-99) mg/dL Assessment and Plan Plan: -hypertension: Management as mentioned above -Right total hip arthroplasty postoperative day one: Pain management due to prophylaxis as per primary service -gastroesophageal reflux disease -Hyperlipidemia: Continue with statin Discharge medication the consideration was reviewed patient is medically stable to be discharged.
== END 2018-08-20 14:00 | disposition home or self-care (01) | DRG 470 ==
LOC: 2ORMAIN 10:32 → 4SSUR 16:01
PROVIDERS: ADMIT Orthopaedic Surgery; ATTEND Orthopaedic Surgery
PROC: 0SR906A Replacement of Right Hip Joint with Oxidized Zirconium on Polyethylene Synthetic Substitute, Uncemented, Open Approach (ICD-10-PCS; principal; 2018-08-20)
PROC: 30233N0 Transfusion of Autologous Red Blood Cells into Peripheral Vein, Percutaneous Approach (ICD-10-PCS; 2018-08-20)
DX: M16.11 Unilateral primary osteoarthritis, right hip (principal); E11.9 Type 2 diabetes mellitus without complications; E78.5 Hyperlipidemia, unspecified; F40.240 Claustrophobia; I10 Essential (primary) hypertension; K21.9 Gastro-esophageal reflux disease without esophagitis; I83.90 Asymptomatic varicose veins of unspecified lower extremity; I95.9 Hypotension, unspecified; E78.00 Pure hypercholesterolemia, unspecified; I89.0 Lymphedema, not elsewhere classified; F41.9 Anxiety disorder, unspecified; Z79.811 Long term (current) use of aromatase inhibitors; Z79.82 Long term (current) use of aspirin; Z79.899 Other long term (current) drug therapy; Z90.12 Acquired absence of left breast and nipple; Z85.3 Personal history of malignant neoplasm of breast; Z88.1 Allergy status to other antibiotic agents; Z88.5 Allergy status to narcotic agent; Z88.0 Allergy status to penicillin; Z88.2 Allergy status to sulfonamides; Z88.8 Allergy status to other drugs, medicaments and biological substances; Z91.048 Other nonmedicinal substance allergy status; Z82.49 Family history of ischemic heart disease and other diseases of the circulatory system; Z83.3 Family history of diabetes mellitus
CPT/HCPCS: 73501; 85025; 86850; 86891; 86900; 86901

== ENCOUNTER → 2018-09-03 | Outpatient (CLI) | payer MEDICARE, OTHER | END | disposition home or self-care (01) | LOC: LABPAT 08-09 12:42 | PROVIDERS: ATTEND Orthopaedic Surgery | DX: Z53.9 Procedure and treatment not carried out, unspecified reason (principal) ==

== ENCOUNTER → 2018-12-10 | Outpatient (CLI) | payer MEDICARE, OTHER ==
--- NOTE | 2018-12-10 10:37 | CT ---
EXAMINATION TYPE: CT chest w con DATE OF EXAM: 12/10/2018 COMPARISON: 06/13/2018 HISTORY: Breast Cancer CT DLP: 507 mGycm. Automated Exposure Control for Dose Reduction was Utilized. TECHNIQUE: CT scan of the thorax is performed following with IV Contrast, patient injected with 100 ml mL of Isovue 300. FINDINGS: LUNGS: The there are vaguely seen 2 mm groundglass density at the right lung base on the prior exam h as become a defined pulmonary nodule now measuring 3 mm on series 4 image 29. Ill-defined densities a t the left lower lobe could relate to volume averaging or early formation of pulmonary nodules such a s on image 40. No new discrete pulmonary nodule or pulmonary mass is seen. No focal consolidation, pl eural effusion or pneumothorax. Main tracheobronchial tree is patent. 4 mm lingular area of atelectas is ora nodule is stable. This is at the mediastinal border and alternatively could represent an epica rdial lymph node. This is nonenlarged. MEDIASTINUM: There are no greater than 1 cm hilar or mediastinal lymph nodes. No pericardial effusi on is seen. However fat stranding at the previous site of left axillary node dissection is similar a lthough there is a newly enlarged left axillary lymph node measuring 1 cm in short axis on series 3 i mage 17, previously not enlarged with an adjacent lymph node just superior to this on image 13 measur ing 9 mm in short axis. OTHER: Left mastectomy has been performed. Medial right breast 9 mm asymmetry is stable without hype rdensity to suggest enhancement. Although the liver is not entirely visualized the hepatic parenchyma that is visualized is diffusely hypoattenuated in comparison to that of the spleen, most commonly se en in hepatic steatosis. This finding limits evaluation for hepatic masses. No gross evidence of hepa tic mass is seen. No intrahepatic biliary ductal dilatation. No cholelithiasis and the visualized por tions of the gallbladder. Distal diverticulum of the esophagus is suspected. Moderate multilevel dege nerative changes of the spine. No new suspicious osseous lesion is seen. IMPRESSION: 1. There is a concerning newly enlarged posterior left axillary lymph node on series 3 image 17 measu ring 1 cm in short axis. Adjacent 9 mm short axis lymph node is also seen just cranial to this. Targe hugo ultrasound could be performed with core biopsy or fine needle aspiration. Alternatively PET CT co uld be considered. 2. There are vaguely seen 2 mm groundglass density at the right lung base is becoming more well-defin ed 3 mm pulmonary nodule. Surveillance is recommended for this nodule and faint possibly developing p unctate left basilar pulmonary nodules.
== END ==
LOC: RADCTMAIN 08:39
PROVIDERS: ATTEND Internal Medicine Hematology & Oncology
DX: C50.812 Malignant neoplasm of overlapping sites of left female breast (principal); R91.8 Other nonspecific abnormal finding of lung field
CPT/HCPCS: 82565; 84520; 71260; 36415; Q9967

== ENCOUNTER → 2019-04-23 | Outpatient (CLI) | payer MEDICARE, OTHER ==
--- NOTE | 2019-04-23 13:40 | MM ---
Reason for exam: additional evaluation requested from prior study. Last mammogram was performed 1 year ago. History: Patient is postmenopausal and has history of breast cancer at age 64. Family history of breast cancer in 2 maternal aunts. Malignant US biopsy breast VAD LT of the left breast, March 29, 2015. Malignant US biopsy breast add'l VAD LT of the left breast, March 29, 2015. Mastectomy of the left breast, 2014. Chemotherapy, 2014. Radiation therapy of the left breast, 2014. Benign ultrasound-guided core biopsy, 2006. Excisional biopsy of the right breast. Took hormonal contraceptives for 14 years beginning at age 19. Taking antineoplastic for 3 years beginning at age 64. Physical Findings: Nurse did not find any significant physical abnormalities on exam. MG 3D Diag Mammo W/Cad RT CC and MLO view(s) were taken of the right breast. Prior study comparison: April 22, 2018, right breast MG 3d diag mammo w/cad RT. April 19, 2017, right breast MG 3d diag mammo w/cad RT. The breast tissue is heterogeneously dense. This may lower the sensitivity of mammography. There are benign appearing round dystrophic calcifications in the right breast. There is no discrete abnormality. These results were verbally communicated with the patient and result sheet given to the patient on 04/23/19. ASSESSMENT: Benign, BI-RAD 2 RECOMMENDATION: Follow-up diagnostic mammogram of the right breast in 1 year.
== END | disposition home or self-care (01) ==
LOC: RADMAMWWP 12:52
PROVIDERS: ATTEND Internal Medicine Hematology & Oncology
DX: Z08 Encounter for follow-up examination after completed treatment for malignant neoplasm (principal); Z85.3 Personal history of malignant neoplasm of breast
CPT/HCPCS: 77065; G0279; 77061

== ENCOUNTER → 2019-06-11 | Outpatient (CLI) | payer MEDICARE, OTHER ==
[2019-06-11 13:26] LABS: African American GFR (CKD) >90 (>60 ml/min/1.73 sqM); Blood Urea Nitrogen 22 mg/dL (7-17); Non-African American GFR(CKD) 81 (>60 ml/min/1.73 sqM)
--- NOTE | 2019-06-11 14:25 | CT ---
EXAMINATION TYPE: CT chest w con DATE OF EXAM: 06/11/2019 COMPARISON: 12/10/2018 HISTORY: History of breast cancer, observe for mets. CT DLP: 418.8 mGycm Automated exposure control for dose reduction was used. CONTRAST: CT scan of the chest is performed with IV Contrast, patient injected with 100 mL of Isovue M300. FINDINGS: LUNGS: Stable left lower lobe pulmonary nodule currently measuring 3 mm versus 3 mm previously. Right lower lobe pulmonary nodule measuring 3 mm versus 6 mm previously as well. No new nodules or enlargi ng nodules are evident. There is no pleural effusion or pneumothorax seen. The tracheobronchial tree is patent. MEDIASTINUM: There are no greater than 1 cm hilar or mediastinal lymph nodes. No pericardial effusi on is seen. Thoracic aorta is of normal caliber. The heart is not enlarged. UPPER ABDOMEN: No significant abnormality appreciated. OTHER: Left-sided mastectomy changes. Left axillary lymph node measures 1 cm versus 1 cm previously. More caudally there is a 1.2 cm lymph node current exam versus 1 cm previously. IMPRESSION: 1. Stable pulmonary nodularity without a new nodule or enlarging nodule. 2. Left axillary adenopathy minimally enlarged since prior study as noted above.
== END | disposition home or self-care (01) ==
LOC: RADCTMAIN 12:50
PROVIDERS: ATTEND Internal Medicine Hematology & Oncology
DX: Z03.89 Encounter for observation for other suspected diseases and conditions ruled out (principal); C50.512 Malignant neoplasm of lower-outer quadrant of left female breast; R59.0 Localized enlarged lymph nodes; R91.8 Other nonspecific abnormal finding of lung field
CPT/HCPCS: 82565; 84520; 71260; 36415; Q9967

== ENCOUNTER → 2019-09-22 | Outpatient (CLI) | payer MEDICARE, OTHER | END | disposition home or self-care (01) | DX: R10.11 Right upper quadrant pain (principal) | CPT/HCPCS: 78226; A9537 ==

== ENCOUNTER → 2019-12-18 | Outpatient (CLI) | payer MEDICARE, OTHER ==
--- NOTE | 2019-12-18 14:26 | NM ---
EXAMINATION TYPE: NM bone scan whole body DATE OF EXAM: 12/18/2019 COMPARISON: 04/14/2015 HISTORY: 04/14/2015 Delayed whole-body scanning was performed following the injection of 23.4 mCi Tc 99m MDP. Images acq uired 3 hours post injection. FINDINGS: Abnormal uptake involving the patella on the right and left knee as well as the feet and shoulders co mpatible with arthritic change. Abnormal uptake throughout the thoracic and lumbar spine and cervical spine likely degenerative. Photopenic defect involving the right hip compatible with previous surgery. Abnormal uptake involving the calvarium compatible with hyperostosis. IMPRESSION: 1. Similar distribution of uptake relative to the prior exam. Nonspecific findings involving the vert ebral column are mildly progressed but most likely degenerative and could be correlated with x-ray as clinically warranted.
== END | disposition home or self-care (01) ==
LOC: RADNMMAIN 10:14
PROVIDERS: ATTEND Internal Medicine Hematology & Oncology
DX: Z03.89 Encounter for observation for other suspected diseases and conditions ruled out (principal); C50.512 Malignant neoplasm of lower-outer quadrant of left female breast; M54.9 Dorsalgia, unspecified; Z88.0 Allergy status to penicillin; Z88.8 Allergy status to other drugs, medicaments and biological substances
CPT/HCPCS: 78306; A9503

== ENCOUNTER → 2020-02-09 | Outpatient (CLI) | payer MEDICARE, OTHER ==
--- NOTE | 2020-02-09 15:42 | BD ---
EXAMINATION TYPE: Axial Bone Density DATE OF EXAM: 02/09/2020 COMPARISON: DEXA October 18, 2017 CLINICAL HISTORY: Breast cancer. Postmenopausal female. Height: 5 FT 5 1/2 IN Weight: 221 FRAX RISK QUESTIONS: Alcohol (3 or more units per day): NO Family History (Parent hip fracture): YES Glucocorticoids (More than 3mos): NO (Ex: prednisone, prednisolone, methylprednisolone, dexamethasone, and hydrocortisone). History of Fracture in Adulthood: NO Secondary Osteoporosis: 1. Type 1 Diabetes: NO 2. Hyperthyroidism: NO 3. Menopause before 45: NO 4. Malnutrition: NO 5. Chronic liver disease: NO Rheumatoid Arthritis: NO Current Tobacco Use: NO RISK FACTORS HISTORY OF: Surgery to Spine/Hip(right/left)/Wrist (right/left): RT REPLACEMENT When: 2019 Family History of Osteoporosis: NO Active: YES Postmenopausal woman: AGE 57 Lost more than 2 inches in height since high school: YES MEDICATIONS: Additional Medications: FEMORA, PRAVASTATIN, METOPROLOL, HYDROCHLOROTHIAZIDE, LISINOPRIL, XANAX NEEDED, POTASSIUM OMEPRAZOLE Additional History: BREAST CANCER CHEMO AND RADIATION 2014 EXAM MEASUREMENTS: Bone mineral densitometry was performed using the [employer] System. Bone mineral density as measured about the Lumbar spine is: ----- L1-L4(G/cm2): 1.237 T Score Values are as follows: ----- L2: 0.9 ----- L3: 0.7 ----- L4: -0.1 ----- L1-L4: 0.5 Bone mineral density has: DECREASED -1.0 % since study of: 2017 Bone mineral density about the L hip (g/cm2): 0.973 T Score values are as follows: -----L Neck: -0.5 -----L Total: -0.1 Bone mineral density has: DECREASED -4.0 % since study of: 2017 IMPRESSION: Normal (Values between +1 and -1 indicate normal bone mass) range remains present. Consider repeatin g this study in 5 years or sooner if there is some new clinical indication. NOTE: T-SCORE=SD OF THE YOUNG ADULT MEAN.
== END | disposition home or self-care (01) ==
LOC: RADBDWWP 14:37
PROVIDERS: ATTEND Internal Medicine Hematology & Oncology
DX: N95.1 Menopausal and female climacteric states (principal); Z79.890 Hormone replacement therapy; C50.512 Malignant neoplasm of lower-outer quadrant of left female breast; Z88.0 Allergy status to penicillin; Z88.8 Allergy status to other drugs, medicaments and biological substances
CPT/HCPCS: 77080

== ENCOUNTER → 2020-05-06 | Outpatient (CLI) | payer MEDICARE, OTHER ==
--- NOTE | 2020-05-07 09:34 | MM ---
Reason for exam: additional evaluation requested from prior study. Last mammogram was performed 1 year ago. History: Patient is postmenopausal and has history of breast cancer at age 64. Family history of breast cancer in maternal aunt at age 80 and breast cancer in maternal aunt at age 64. Malignant US biopsy breast VAD LT of the left breast, March 29, 2015. Malignant US biopsy breast add'l VAD LT of the left breast, March 29, 2015. Mastectomy of the left breast, 2014. Chemotherapy, 2014. Radiation therapy of the left breast, 2014. Benign ultrasound-guided core biopsy, 2006. Excisional biopsy of the right breast. Took hormonal contraceptives for 14 years beginning at age 19. Taking antineoplastic for 5 years beginning at age 64. Physical Findings: Nurse did not find any significant physical abnormalities on exam. MG 3D Diag Mammo W/Cad RT CC and MLO view(s) were taken of the right breast. Prior study comparison: April 23, 2019, right breast MG 3d diag mammo w/cad RT. April 22, 2018, right breast MG 3d diag mammo w/cad RT. The breast tissue is heterogeneously dense. This may lower the sensitivity of mammography. Calcifications. No significant new findings when compared with previous films. These results were verbally communicated with the patient and result sheet given to the patient on 05/06/20. ASSESSMENT: Benign, BI-RAD 2 RECOMMENDATION: Routine screening mammogram of the right breast in 1 year.
== END | disposition home or self-care (01) ==
LOC: RADMAMWWP 14:08
PROVIDERS: ATTEND Internal Medicine Hematology & Oncology
DX: Z08 Encounter for follow-up examination after completed treatment for malignant neoplasm (principal); Z85.3 Personal history of malignant neoplasm of breast
CPT/HCPCS: 77065; G0279; 77061

== ENCOUNTER → 2020-06-22 | Outpatient (CLI) | payer MEDICARE, OTHER ==
--- NOTE | 2020-06-22 13:19 | CT ---
EXAMINATION TYPE: CT ChestAbdPelvis w con DATE OF EXAM: 06/22/2020 COMPARISON: Most recent chest CT June 11, 2019 and older CTs HISTORY: follow up breast cancer CT DLP: 1620.1 mGycm. Automated Exposure Control for Dose Reduction was Utilized. CONTRAST: CT scan of the thorax, abdomen and pelvis is performed with IV Contrast, patient injected with 100 mL of Isovue 300. FINDINGS: LUNGS: There is 6 mm posterior right basilar nodule image 50 continues to slowly increase in size fro m last 2 CTs. Enlarging 8 x 4 mm nodule right lower lobe noted axial image 41. Some scattered microno dules redemonstrated. No additional greater than 5 mm pulmonary nodules identified bilaterally. MEDIASTINUM: There are no greater than 1 cm hilar or mediastinal lymph nodes. No cardiomegaly or pe ricardial effusion is seen. OTHER: Left breast is surgically absent. Scar tissue left axilla redemonstrated. There is persistent mild fat stranding and increasing nodularity in the lateral inferior aspect of the axilla below level of surgical clips with persistent 1.0 cm suspicious lesion axial image 20. LIVER/GB: Dependent density consistent with sludge and/or tiny stones PANCREAS: No significant abnormality is seen. SPLEEN: No significant abnormality is seen. ADRENALS: No significant abnormality is seen. KIDNEYS: Symmetric cortical medullary uptake and excretion without concerning renal mass or hydroneph rosis seen bilaterally. BOWEL: Oral contrast reaches level of right colon. No suspicious small or large bowel dilatation. Kavon e diverticula scattered throughout the colon greatest the level of sigmoid colon. GENITAL ORGANS: Uterus surgically absent or atrophic. LYMPH NODES: No greater than 1cm abdominal or pelvic lymph nodes are appreciated. OSSEOUS STRUCTURES: Metallic hardware from total right hip arthroplasty causes streak artifact limiti ng evaluation of pelvic structures new from June 2018 study. There is moderate to severe narrowin g and spurring in the left hip joint redemonstrated. Moderate to severe disc space narrowing and vacu um disc phenomenon lumbosacral junction. OTHER: No significant additional abnormality is seen. IMPRESSION: Persistent suspicious left axillary adenopathy. Slowly enlarging 2 posterior right basila r nodules. Metastatic malignancy cannot be excluded. Consider PET/CT follow-up and or left axillary s ampling.
== END | disposition home or self-care (01) ==
LOC: RADCTMAIN 10:23
PROVIDERS: ATTEND Internal Medicine Hematology & Oncology
DX: C50.512 Malignant neoplasm of lower-outer quadrant of left female breast (principal); R10.84 Generalized abdominal pain; R07.9 Chest pain, unspecified; Z88.0 Allergy status to penicillin; Z88.8 Allergy status to other drugs, medicaments and biological substances
CPT/HCPCS: 71260; 74177; Q9967

== ENCOUNTER → 2020-12-14 | Outpatient (CLI) | payer MEDICARE, OTHER ==
--- NOTE | 2020-12-14 14:59 | CT ---
EXAMINATION TYPE: CT chest wo con DATE OF EXAM: 12/14/2020 COMPARISON: 08/23/2019, 06/11/2019 HISTORY: 70-year-old female C50.512, with history of breast cancer TECHNIQUE: Contiguous axial scanning of the chest without IV contrast. Coronal and sagittal reconstru ctions performed. CT DLP: 330.5 mGycm Automated exposure control for dose reduction was used. FINDINGS: Heart normal size without pericardial effusion. Mild aortic valvular calcifications are present. Aorta normal caliber with conventional arch vessel branching anatomy. Left axillary lymph nodes redemonstrated. These have slightly increased in size measuring 1.5 cm and 8 mm versus 1.2 and 6 mm, previously. Surgical clips compatible with prior left axillary node dissect ion. Status post left mastectomy. Otherwise, no thoracic lymphadenopathy identified. Minimal emphysematous change. Posterior right basilar pulmonary nodule measures 6 mm. While the overa ll size is similar, it shows slightly increasing soft tissue fullness especially comparing back to . This is very indolent behavior but should continue to be monitored. No consolidation or pleu ral effusion. Tiny hiatal hernia. Visualized upper abdomen shows left-sided colonic diverticulosis. Bones: Moderate degenerative disc disease mid thoracic spine. Some anterior bridging endplate spondyl osis lower thoracic spine. No osseous destructive process. IMPRESSION: 1. PRIOR LEFT MASTECTOMY AND LEFT AXILLARY NODE DISSECTION. LYMPH NODES IN THE LOWER LEFT AXILLA SHOW SLIGHT INCREASING SIZE AT 1.5 CM AND 8 MM (VERSUS 1.2 CM AND 6 MM, PREVIOUSLY). CONTINUED FOLLOW-UP RECOMMENDED. 2. POSTERIOR RIGHT BASILAR PULMONARY NODULE MEASURES 6 MM. WHILE THE OVERALL SIZE IS SIMILAR, THERE I S INCREASING SOFT TISSUE FULLNESS TO THE NODULE. AGAIN, CONTINUED SURVEILLANCE RECOMMENDED.
== END | disposition home or self-care (01) ==
LOC: RADCTMAIN 13:47
PROVIDERS: ATTEND Internal Medicine Hematology & Oncology
DX: R91.1 Solitary pulmonary nodule (principal); Z85.3 Personal history of malignant neoplasm of breast
CPT/HCPCS: 71250

== ENCOUNTER → 2020-12-31 | Outpatient (CLI) | payer MEDICARE, OTHER ==
--- NOTE | 2020-12-31 08:16 | USB ---
Ultrasound left axilla INDICATION: Abnormal prior CT in patient with history of left breast cancer status post mastectomy COMPARISON: 12/14/2020 FINDINGS: The left axillary tail was scanned with ultrasound with multiple irregular hypoechoic lesions as deta iled below in centimeters: 0.8 x 0.8 x 1.0 0.5 x 0.5 x 0.3 0.9 x 0.5 x 0.6 1.5 x 0.8 x 0.8, appears deep to the muscle 0.7 x 0.7 x 0.6, appears deep to the muscle IMPRESSION: Multiple irregular hypoechoic lesions in the left axillary tail are suspicious for malignancy. Ultras ound-guided left axillary biopsy of one of the lesions is recommended with management of the others d epending upon biopsy results. BI-RADS 4, suspicious.
== END | disposition home or self-care (01) ==
LOC: RADUSWWP 07:22
PROVIDERS: ATTEND Internal Medicine Hematology & Oncology
DX: N64.59 Other signs and symptoms in breast (principal); Z85.3 Personal history of malignant neoplasm of breast; Z90.12 Acquired absence of left breast and nipple

== ENCOUNTER → 2020-12-31 | Outpatient (CLI) | payer MEDICARE, OTHER ==
--- NOTE | 2021-01-05 07:38 | PE ---
EXAMINATION TYPE: PET CT fusion skull to thigh DATE OF EXAM: 12/31/2020 COMPARISON: CT chest abdomen and pelvis 06/22/2020 Prior PET/CT: None HISTORY: Breast cancer TECHNIQUE: Following the intravenous administration of 7.95 mCi of F-18 FDG, whole body images are p erformed from the skull base to the midthigh. Images are reviewed on the computer in the coronal, ax ial, and sagittal planes. Reconstructed rotating images are created on independent workstation and r eviewed on the computer. A localization and attenuation correction CT is performed in conjunction w ith the PET scan. DLP: 472.27 mGycm SCAN: Initial Blood glucose: 90 mg/dL Average Mediastinum SUV: 1.67 Average Liver SUV: 2.49 FINDINGS: NECK: No abnormal uptake THORAX: There are scattered small lymph nodes within the left axillary region with hyperintense uptak e. Maximum SUV of 2.6. Mean of 0.73.Postsurgical inflammatory change can be considered. Metastatic di sease is not excluded. ABDOMEN: No abnormal uptake PELVIS: No abnormal uptake OSSEOUS STRUCTURES: No abnormal uptake LOCALIZATION CT: Enlarged lymphadenopathy within the left axillary region with the largest measuring 1.3 cm and 1.2 SUV. Postsurgical inflammatory change can be considered. Metastatic disease is not exc luded. Left breast prosthesis is present. COMPARISON: Lymphadenopathy in the left axillary region appears to be increase in size over the inter lakshmi. IMPRESSION: 1. Increased uptake within the left axillary lymphadenopathy suspicious for some early metastasis. Po stsurgical inflammatory change considered within the differential. 2. Radiotracer distribution otherwise appears within normal limits.
== END | disposition home or self-care (01) ==
LOC: RADPETMAIN 15:07
PROVIDERS: ATTEND Internal Medicine Hematology & Oncology
DX: C50.512 Malignant neoplasm of lower-outer quadrant of left female breast (principal); R59.0 Localized enlarged lymph nodes
CPT/HCPCS: 78815; A9552

== ENCOUNTER 2021-01-25 12:16 | Day surgery (SDC) | payer MEDICARE, OTHER ==
[2021-01-25 13:15] VITALS: RESP 18
[2021-01-25 14:19] VITALS: BP 148/70; PULSE 72
--- NOTE | 2021-01-25 19:55 | US ---
EXAMINATION TYPE: US biopsy lymph node DATE OF EXAM: 01/25/2021 HISTORY: Left axillary mass. FINDINGS: Maximal barrier technique was utilized. Hand hygiene achieved with soap and water and alco hol-based hand rub. The skin overlying a suitable path to the patient's mass in the left axilla was l ocalized with ultrasound and the overlying skin prepped and draped. Ultrasound was utilized with boom rile technique. Lidocaine was used for local anesthesia. A skin margo was made with a scalpel. An 1 8-gauge needle was advanced under direct ultrasound guidance and core specimen obtained of the mass. Single pass made. Specimen submitted in formalin to Pathology. Following the procedure, hemostasis achieved and the patient is discharged in stable condition without complication. IMPRESSION:STATUS POST ULTRASOUND GUIDED CORE BIOPSY OF left axillary MASS, PATHOLOGY IS PENDING. TH IS PROCEDURE IS PERFORMED BY THE UNDERSIGNED.
== END 2021-01-25 14:10 | disposition home or self-care (01) ==
LOC: RADPROMAIN 12:16
PROVIDERS: ATTEND Internal Medicine Hematology & Oncology
DX: C50.912 Malignant neoplasm of unspecified site of left female breast (principal)
CPT/HCPCS: 38505; 76942; 88305; 88341; 88342

== ENCOUNTER → 2021-05-09 | Outpatient (CLI) | payer MEDICARE, OTHER ==
--- NOTE | 2021-05-10 08:43 | MM ---
Reason for exam: additional evaluation requested from prior study. Last mammogram was performed 1 year ago. History: Patient is postmenopausal and has history of breast cancer at age 64. Family history of breast cancer in maternal aunt at age 80 and breast cancer in maternal aunt at age 64. Malignant US biopsy breast VAD LT of the left breast, March 29, 2015. Malignant US biopsy breast add'l VAD LT of the left breast, March 29, 2015. Mastectomy of the left breast, 2014. Chemotherapy, 2014. Radiation therapy of the left breast, 2014. Benign ultrasound-guided core biopsy, 2006. Excisional biopsy of the right breast. Took hormonal contraceptives for 14 years beginning at age 19. Taking antineoplastic. Physical Findings: Nurse did not find any significant physical abnormalities on exam. MG 3D Diag Mammo W/Cad RT CC and MLO view(s) were taken of the right breast. Prior study comparison: May 06, 2020, right breast MG 3d diag mammo w/cad RT. April 23, 2019, right breast MG 3d diag mammo w/cad RT. Finding: There are typically benign calcifications in the right breast. Asymmetric breast tissue 6 o'clock right breast. New finding since May 06, 2020 and April 23, 2019. These results were verbally communicated with the patient and result sheet given to the patient on 05/09/21. ASSESSMENT: Incomplete: need additional imaging evaluation, BI-RAD 0 RECOMMENDATION: Ultrasound of the right breast.
--- NOTE | 2021-05-10 10:51 | USB ---
Reason for exam: additional evaluation requested from abnormal screening. History: Patient is postmenopausal and has history of breast cancer at age 64. Family history of breast cancer in maternal aunt at age 80 and breast cancer in maternal aunt at age 64. Malignant US biopsy breast VAD LT of the left breast, March 29, 2015. Malignant US biopsy breast add'l VAD LT of the left breast, March 29, 2015. Mastectomy of the left breast, 2014. Chemotherapy, 2015. Radiation therapy of the left breast, 2014. Benign ultrasound-guided core biopsy, 2006. Excisional biopsy of the right breast. Took hormonal contraceptives for 14 years beginning at age 19. Taking antineoplastic. US Breast Limited RT Technologist: Payal Meek Right limited breast ultrasound including focal area of concern, retroareolar and axilla demonstrates a 0.8 x 1.0 x 0.5cm mixed lesion at 5 o'clock, a 0.7 x 0.4 x 0.4cm taller than wide, indistinct, solid, hypoechoic lesion at 6 o'clock for which a biopsy is recommended and a 0.3 x 0.4 x 0.3cm cystic lesion at 9 o'clock. These results were verbally communicated with the patient and result sheet given to the patient on 05/09/21. ASSESSMENT: Suspicious, BI-RAD 4 RECOMMENDATION: Ultrasound core biopsy of the right breast. Called Dr. Blackmon's office with mammographic findings and has scheduled an appointment for the patient for 06/29/21 at 4:[address] Grajdea. Biopsy scheduled for 05/25/21 at 10:30. PRELIMINARY REPORT CALLED AND FAXED TO DR. GRAJEDA ON 05/10/21.
== END | disposition home or self-care (01) ==
LOC: RADMAMWWP 12:43
PROVIDERS: ATTEND Internal Medicine Hematology & Oncology
DX: R92.1 Mammographic calcification found on diagnostic imaging of breast (principal); N64.89 Other specified disorders of breast; Z80.3 Family history of malignant neoplasm of breast
CPT/HCPCS: 77065; 76642; G0279; 77061

== ENCOUNTER → 2021-05-25 | Day surgery (SDC) | payer MEDICARE, OTHER ==
[2021-05-25 10:03] VITALS: BP 134/84; PULSE 71; RESP 16; TEMP 98.7
--- NOTE | 2021-05-25 15:15 | USB ---
EXAMINATION TYPE: US discontinued breast bx RT DATE OF EXAM: 05/25/2021 COMPARISON: 05/09/2021, 01/25/2021, 12/31/2020, 05/06/2020, 09/23/2014 HISTORY: 70-year-old female status post left mastectomy in 2014 for invasive lobular carcinoma, refer red for ultrasound-guided biopsy for shadowing area within the right breast. Recently diagnosed with left axillary recurrence on oral chemotherapy. TECHNIQUE: Prescan 6:00 position right breast. FINDINGS: The ultrasound images show extensive shadowing breast tissue. We observed during real-time scanning a nd shadowing breast tissue was present diffusely throughout the breast within all quadrants. This see ms to be the normal appearance of the patient's breast tissue. A more focal masslike area of discrete shadowing oral mass is not clearly identified. We are unable to establish discrete target for biopsy . We note that the patient's left breast cancer was not identified mammographically and that the pathol ogy was invasive lobular carcinoma. For this reason, we recommend close follow-up but are unable to d etermine an adequate site for biopsy at this time. Findings and impression are discussed with the brice joseph. IMPRESSION: 1. BI-RADS assessment category 3, probably benign. Canceled right breast biopsy. RECOMMENDATION: 1. Three-month follow-up diagnostic right breast mammogram after canceled ultrasound-guided biopsy. N ote the history stated above. 2. 3 month follow-up right breast ultrasound.
== END ==
LOC: RADUSWWP 09:29
PROVIDERS: ATTEND Surgery
DX: R92.8 Other abnormal and inconclusive findings on diagnostic imaging of breast (principal); Z53.9 Procedure and treatment not carried out, unspecified reason; Z88.5 Allergy status to narcotic agent; Z88.0 Allergy status to penicillin; Z88.2 Allergy status to sulfonamides

== ENCOUNTER → 2021-06-17 | Outpatient (CLI) | payer MEDICARE, OTHER ==
--- NOTE | 2021-06-20 13:04 | PE ---
Nuclear medicine PET/CT HISTORY: C50.512 BREAST CA, left, subsequent Patient received 11 mCi F-18 FDG intravenously in delayed scanning was performed from the skull base to the mid thighs. A localization and attenuation correction CT scan was performed. Correlation prior nuclear medicine PET/CT 12/31/2020 Chest and neck: There is no cervical or supraclavicular adenopathy. No mediastinal, axillary, or rajat r adenopathy. Previously identified uptake in the left axilla has improved, SUV currently 1.2, prior exam SUV 3.2. Surgical clips are present, patient is post left-sided mastectomy and axillary node dis section. At the right lung base subpleural possible postinflammatory nodule shows a similar appearanc e, no associated uptake. There is no pleural or pericardial effusion. No evident endobronchial lesion . ABDOMEN: There is no evident liver mass. No suspicious uptake. No retroperitoneal adenopathy or adren al mass. There is no ascites. Umbilical hernia contains fat. Uptake within the pelvis along the colon is likely physiologic. There is streak artifact due to patient's right hip arthroplasty. Osseous structures show no suspicious uptake. IMPRESSION: Interval improvement in the left axillary uptake. Postop changes.
== END | disposition home or self-care (01) ==
LOC: RADPETMAIN 09:40
PROVIDERS: ATTEND Internal Medicine Hematology & Oncology
DX: C50.512 Malignant neoplasm of lower-outer quadrant of left female breast (principal)
CPT/HCPCS: 78815; A9552

== ENCOUNTER → 2021-08-18 | Outpatient (CLI) | payer MEDICARE, OTHER ==
--- NOTE | 2021-08-19 10:39 | MM ---
Reason for exam: follow-up at short interval from prior study. Last mammogram was performed 3 months ago. History: Patient is postmenopausal and has history of breast cancer at age 64. Family history of breast cancer in maternal aunt at age 80 and breast cancer in maternal aunt at age 64. US discontinued breast bx RT of the right breast, May 25, 2021. Malignant US biopsy breast VAD LT of the left breast, March 29, 2015. Malignant US biopsy breast add'l VAD LT of the left breast, March 29, 2015. Mastectomy of the left breast, 2014. Chemotherapy, 2014. Radiation therapy of the left breast, 2014. Benign ultrasound-guided core biopsy, 2006. Excisional biopsy of the right breast. Took hormonal contraceptives for 14 years beginning at age 19. Taking antineoplastic beginning at age 70. Physical Findings: Nurse did not find any significant physical abnormalities on exam. MG 3D Diag Mammo W/Cad RT CC and MLO view(s) were taken of the right breast. Prior study comparison: May 09, 2021, right breast MG 3d diag mammo w/cad RT. May 06, 2020, right breast MG 3d diag mammo w/cad RT. The breast tissue is heterogeneously dense. This may lower the sensitivity of mammography. Inferior asymmetric density is unchanged. No significant new findings when compared with previous films. These results were verbally communicated with the patient and result sheet given to the patient on 08/18/21. ASSESSMENT: Incomplete: need additional imaging evaluation, BI-RAD 0 RECOMMENDATION: Ultrasound of the right breast.
--- NOTE | 2021-08-19 10:42 | USB ---
Reason for exam: follow-up at short interval from prior study. History: Patient is postmenopausal and has history of breast cancer at age 64. Family history of breast cancer in maternal aunt at age 80 and breast cancer in maternal aunt at age 64. US discontinued breast bx RT of the right breast, May 25, 2021. Malignant US biopsy breast VAD LT of the left breast, March 29, 2015. Malignant US biopsy breast add'l VAD LT of the left breast, March 29, 2015. Mastectomy of the left breast, 2014. Chemotherapy, 2014. Radiation therapy of the left breast, 2014. Benign ultrasound-guided core biopsy, 2006. Excisional biopsy of the right breast. Took hormonal contraceptives for 14 years beginning at age 19. Taking antineoplastic beginning at age 70. US Breast Limited RT Right limited breast ultrasound including focal area of concern, retroareolar and axilla demonstrates no cystic or solid lesion seen. Scanned 3-6 o'clock. These results were verbally communicated with the patient and result sheet given to the patient on 08/18/21. ASSESSMENT: Benign, BI-RAD 2 RECOMMENDATION: Follow-up diagnostic mammogram of the right breast in 1 year. Manage on a clinical basis with regard to known left side recurrence.
== END | disposition home or self-care (01) ==
LOC: RADMAMWWP 13:23
PROVIDERS: ATTEND Surgery
DX: R92.8 Other abnormal and inconclusive findings on diagnostic imaging of breast (principal); Z78.0 Asymptomatic menopausal state; Z85.3 Personal history of malignant neoplasm of breast; Z80.3 Family history of malignant neoplasm of breast
CPT/HCPCS: 77065; 76642; G0279; 77061

== ENCOUNTER → 2021-09-26 | Outpatient (CLI) | payer MEDICARE, OTHER ==
--- NOTE | 2021-09-26 15:17 | NM ---
EXAMINATION TYPE: NM bone scan whole body DATE OF EXAM: 09/26/2021 COMPARISON: PET/CT 06/17/2021, bone scan 12/18/2019 HISTORY: Breast cancer Delayed whole-body scanning was performed following the injection of 24.2 mCi Tc 99m MDP. Images acq uired 3 hours post injection. FINDINGS: Abnormal uptake involving the patella on the right and left knee as well as the feet and shoulders co mpatible with arthritic change. Abnormal uptake throughout the thoracic, lumbar spine and cervical spine likely degenerative. Photope tosha defect involving the right hip compatible with previous surgery. Next line Abnormal uptake involv ing the calvarium compatible with hyperostosis. IMPRESSION: 1. Stable bone scan demonstrating no diagnostic evidence of metastases. 2. Abnormal uptake throughout the cervical, thoracic and lumbar spine is most likely degenerative. 3. Abnormal uptake involving the shoulders, knees, ankles and feet appears to be post arthritic
== END | disposition home or self-care (01) ==
LOC: RADNMMAIN 10:02
PROVIDERS: ATTEND Internal Medicine Hematology & Oncology
DX: C50.512 Malignant neoplasm of lower-outer quadrant of left female breast (principal); R93.7 Abnormal findings on diagnostic imaging of other parts of musculoskeletal system
CPT/HCPCS: 78306; A9503

== ENCOUNTER → 2021-12-09 | Outpatient (CLI) | payer MEDICARE, OTHER ==
--- NOTE | 2021-12-11 10:07 | PE ---
EXAMINATION TYPE: PET CT fusion skull to thigh DATE OF EXAM: 12/09/2021 COMPARISON: Prior PET/CT June 17, 2021 and older studies. HISTORY: Breast cancer progress study originally diagnosed and treated in 2014 and 2016 with recurren ce in 2020. TECHNIQUE: Following the intravenous administration of 9.38 mCi of F-18 FDG, whole body images are p erformed from the skull base to the midthigh. Images are reviewed on the computer in the coronal, ax ial, and sagittal planes. Reconstructed rotating images are created on independent workstation and r eviewed on the computer. A localization and attenuation correction CT is performed in conjunction w ith the PET scan. Blood glucose level equals 110. SCAN: Subsequent Scan FINDINGS: SKULL BASE AND NECK: No new areas of abnormal hypermetabolic uptake. CHEST, MEDIASTINUM, AND HILAR REGION: Left-sided mastectomy changes with axillary surgical clips are redemonstrated. No new areas of abnormal hypermetabolic uptake ABDOMEN AND PELVIS: No new areas of abnormal hypermetabolic uptake. Normal excretion. OSSEOUS STRUCTURES: No new areas of abnormal hypermetabolic uptake. OTHER CT: Metallic right hip surgery causes streak artifact limiting evaluation of pelvic structures. Uterus is likely surgically absent. Facet arthropathy in the lumbar spine is present. IMPRESSION: No new areas of abnormal hypermetabolic uptake to suggest active neoplastic recurrence.
== END | disposition home or self-care (01) ==
LOC: RADPETMAIN 11:05
PROVIDERS: ATTEND Internal Medicine Hematology & Oncology
DX: C50.512 Malignant neoplasm of lower-outer quadrant of left female breast (principal)
CPT/HCPCS: 78815; A9552

== ENCOUNTER 2021-12-13 07:13 | Day surgery (SDC) | payer MEDICARE, OTHER ==
[2021-12-09 15:33] VITALS: BMI 33.6
[~2021-12-13 07:13] MED LIST changes: +LACTATED RINGERS 1,000 ML IV SCH; +LIDOCAINE 1% (10MG/ML) FOR IV START INTRADERMA PRN; -LIDOCAINE 1% 20 ML VIAL (10MG/ML) FOR IV START INTRADERMA PRN; -TRANEXAMIC ACID 1,000 MG in SODIUM CHLORIDE 0.9% 100 ML IVPB ONE; -ceFAZolin IN SWFI 2 GM/20 ML SYRINGE IVP ONE; -fentaNYL (PF) 50 MCG/ML 2 ML AMP IV PRN
[2021-12-13] MEDS ORDERED: ONDANSETRON 4 MG/2 ML VIAL ONE (07:44)
[2021-12-13 07:50] VITALS: TEMP 96.4
[2021-12-13] MEDS ORDERED: LIDOCAINE 1% (10MG/ML) FOR IV START INTRADERMA ONE (07:50)
[2021-12-13] MEDS ORDERED: PROPOFOL 10 MG/ML 20 ML VIAL IV ONE (08:01)
[2021-12-13] MEDS ORDERED: LIDOCAINE 2% INJ 20 MG/ML (2 ML VIAL) ONE (08:01)
[2021-12-13 08:02] LABS: Glucose,Whole Blood 127 mg/dL (75-99)
--- NOTE | 2021-12-13 08:26 | P.PCN ---
Date of Procedure: 12/13/21 Procedure(s) Performed: PREOPERATIVE DIAGNOSIS: GERD, rectal bleed, history of polyps POSTOPERATIVE DIAGNOSIS: Minimal gastritis, PROCEDURE: 1. EGD with biopsy 2. Colonoscopy ANESTHESIA: MAC SURGEON: Rodríguez Sanz M.D. SPECIMENS: Antrum ENDOSCOPIC PROCEDURE: The patient was on the endoscopy table in the left decubitus position. The Olympus gastroscope was inserted into the oropharynx and passed under direct visualization to the region of the third portion of the duodenum. From that point the scope was slowly withdrawn inspecting all surfaces carefully. There were no neoplastic inflammatory or polypoid lesions throughout the duodenum. The pylorus was widely patent. The stomach was carefully inspected. There was minimal gastritis. A biopsy of the antrum took place to rule out H. pylori. Retroflexion revealed a normal hiatus. The esophagus was then carefully examined. There were no neoplastic inflammatory or polypoid lesions throughout the visualized esophagus. The patient was kept on the endoscopy table in the left decubitus position. The Olympus colonoscope was inserted into the anus and passed under direct visualization to the base of the cecum. The appendiceal orifice was visualized. From that point the scope was slowly withdrawn inspecting all surfaces carefully. There were no neoplastic inflammatory or polypoid lesions throughout the cecum, ascending, transverse, descending, sigmoid and rectum. There was mild scattered diverticulosis noted throughout the colon. Digital rectal examination was normal. The patient was taken to the recovery room in stable condition per anesthesia guidelines. RECOMMENDATIONS: Resume diet. Increase fiber. Continue antiacid therapy. Follow-up EGD and colonoscopy 5 years. Disposition: observation
[2021-12-13 08:34] VITALS: RESP 16
[2021-12-13 09:05] VITALS: BP 120/70; PULSE 87
== END 2021-12-13 09:15 | disposition home or self-care (01) ==
LOC: ORWHC2ENDO 07:13
PROVIDERS: ATTEND Surgery
DX: K21.00 Gastro-esophageal reflux disease with esophagitis, without bleeding (principal); K29.50 Unspecified chronic gastritis without bleeding; K62.5 Hemorrhage of anus and rectum; Z86.010 Personal history of colon polyps; I10 Essential (primary) hypertension; Z88.0 Allergy status to penicillin; E78.5 Hyperlipidemia, unspecified
CPT/HCPCS: 45378; 43239; 88305; J2405; J2704; J2001

== ENCOUNTER → 2022-02-02 | Outpatient (CLI) | payer MEDICARE, OTHER ==
--- NOTE | 2022-02-02 16:23 | US ---
EXAMINATION TYPE: US venous doppler duplex UE LT DATE OF EXAM: 02/02/2022 COMPARISON: NONE CLINICAL HISTORY: 71-year-old female R22.32 LOCALIZED SWELLING, MASS AND LUMP, LEFT UPP. Edema, histo ry of Breast Ca. The patient has lymphedema after having 22 lymph nodes removed. SIDE PERFORMED: Left TECHNIQUE: Grayscale, color doppler, spectral doppler imaging performed of the deep veins of the upp er extremities. FINDINGS: There is normal flow, compressibility and vascular waveforms. Left Arm: Negative for DVT IMPRESSION: No evidence for DVT within the left upper extremity.
== END | disposition home or self-care (01) ==
LOC: RADUSWWP 14:21
PROVIDERS: ATTEND Internal Medicine Hematology & Oncology
DX: R22.32 Localized swelling, mass and lump, left upper limb (principal)

== ENCOUNTER → 2022-06-10 | Outpatient (CLI) | payer MEDICARE, OTHER ==
--- NOTE | 2022-06-11 08:32 | PE ---
EXAMINATION TYPE: PET CT fusion skull to thigh DATE OF EXAM: 06/10/2022 CLINICAL INDICATION:Female, 72 years old with history of C50.512; TECHNIQUE: Following the intravenous administration of 12.0 mCi of F-18 FDG, whole body images are performed from the skull base to the midthigh. Images are reviewed on the computer in the coronal, a xial, and sagittal planes. Reconstructed rotating images are created on independent workstation and reviewed on the computer. A non-contrast CT is performed in conjunction with the PET scan. Glucose level 103 mg/dL COMPARISON: CT None, PET/CT 12/09/2021, FINDINGS: Mediastinal SUV mean is 3.0. Hepatic parenchyma SUV mean is 3.3. SKULL BASE AND NECK: No suspicious FDG activity. CHEST, MEDIASTINUM, AND HILAR REGION: No suspicious FDG activity. Surgically absent left breast with surgical clips in the left axilla. ABDOMEN AND PELVIS: No suspicious FDG activity. OSSEOUS STRUCTURES: No suspicious FDG activity. OTHER CT: Left breast is surgically absent. The heart is mildly enlarged for size. Aortic valve calci fications. Mild emphysema changes in the lungs. Few layering gallstones present. Scattered clonic div erticula. Fat-containing ventral wall/umbilical hernia. Right hip arthroplasty IMPRESSION: No suspicious FDG activity.
== END | disposition home or self-care (01) ==
LOC: RADPETMAIN 13:30
PROVIDERS: ATTEND Internal Medicine Hematology & Oncology
DX: C50.512 Malignant neoplasm of lower-outer quadrant of left female breast (principal)
CPT/HCPCS: 78815; A9552

== ENCOUNTER → 2022-12-29 | Outpatient (CLI) | payer MEDICARE, OTHER ==
[2022-12-29 11:06] LABS: Partial Thromboplastin Time 23.2 sec (22.0-30.0); Prothrombin Time 10.9 sec (9.0-12.0)
[2022-12-29 15:51] LABS: Appearance,Urine Clear (Clear); Bilirubin,Urine Negative (Negative); Blood,Urine Negative (Negative); Color,Urine Yellow (Yellow); Ketones,Urine Negative (Negative); Nitrite,Urine Negative (Negative); PH, Urine 7.5; Specific Gravity,Urine 1.007 (1.001-1.030)
[2022-12-29 15:53] LABS: HCT 36.4 % (37.2-50.0); HGB 12.3 d/dL (12.0-15.0); MCH 34.3 pg (27.0-32.0); MCHC 33.8 d/dL (32.0-37.0); MCV 101.4 FL (80.0-97.0); Mean Platelet Volume 10.7 FL (9.5-12.2); NRBC Per 100 WBC 0 X 10*3/uL (0.00-0.01); Platelet Count 173 X 10*3/uL (140-440); RBC 3.59 X 10*6/uL (4.10-5.60); RDW 14.2 % (11.5-14.5); WBC 1.86 X 10*3/uL (4.50-10.00)
[2022-12-29 15:55] LABS: Bacteria,Urine None Seen (None Seen)
[2022-12-29 16:00] LABS: ALT 18 U/L (8-49); AST 30 U/L (13-35); Albumin 4.4 d/dL (3.8-4.9); Albumin/Globulin Ratio 1.69 Ratio (1.60-3.17); Alkaline Phosphatase 69 U/L (41-126); BUN/Creat Ratio 16.33 Ratio (12.00-20.00); Blood Urea Nitrogen 14.7 mg/dL (9.0-27.0); Calcium 9.7 mg/dL (8.7-10.3); Carbon Dioxide 27.4 mmol/L (21.6-31.8); Chloride 94 mmol/L (96-109); Globulin 2.6 d/dL (1.6-3.3); Glucose 107 mg/dL (70-110); Potassium 3.9 mmol/L (3.5-5.5); Sodium 135 mmol/L (135-145); Total Bilirubin 1.4 mg/dL (0.3-1.2)
== END | disposition home or self-care (01) ==
LOC: LABWHC1 10:05
PROVIDERS: ATTEND Orthopaedic Surgery
DX: Z01.812 Encounter for preprocedural laboratory examination (principal); M16.12 Unilateral primary osteoarthritis, left hip
CPT/HCPCS: 36415; 80053; 81001; 85027; 85610; 85730

== ENCOUNTER 2023-01-08 12:54 | Day surgery (SDC) | payer MEDICARE, OTHER ==
[2023-01-02 13:55] VITALS: BMI 32.8
[~2023-01-08 12:54] MED LIST changes: +ACETAMINOPHEN TAB 500 MG TAB PO PRN; +DEXAMETHASONE SOD PHOSPHATE 4 MG/ML 1 ML VIAL IV ONE; +GABAPENTIN 300 MG CAP PO PRN; +HYDROmorphone 0.5 MG/0.5 ML SYRINGE IVP PRN; +MELOXICAM 7.5 MG TAB PO PRN; +MIDAZOLAM 2 MG/2 ML VIAL IV PRN; +ONDANSETRON 4 MG/2 ML VIAL IVP ONE; +TRANEXAMIC 1,000 MG/100ML-NACL 1,000 MG in SALINE 1 100ML.BAG IVPB PRN
[2023-01-08 13:44] LABS: Glucose,Whole Blood 113 mg/dL (70-110)
[2023-01-08] MEDS ORDERED: Acetaminophen-Codeine 300-30mg TAB PO PRN ×2 (14:34)
[2023-01-08] MEDS ORDERED: NALOXONE 0.4 MG/ML 1 ML VIAL IV PRN (14:34)
[2023-01-08] MEDS ORDERED: HYDROmorphone 0.5 MG/0.5 ML SYRINGE IVP PRN ×3 (14:34)
[2023-01-08] MEDS ORDERED: MAGNESIUM HYDROXIDE 2,400 MG/30 ML CUP PO PRN (14:34)
[2023-01-08] MEDS ORDERED: ONDANSETRON 4 MG/2 ML VIAL IVP PRN (14:34)
[2023-01-08] MEDS ORDERED: TRANEXAMIC 1,000 MG/100ML-NACL PREMIX BAG ONE (15:00)
[2023-01-08] MEDS ORDERED: fentaNYL (PF) 50 MCG/ML 2 ML AMP ONE (15:00)
[2023-01-08] MEDS ORDERED: HYDROmorphone (PF) 1 MG/ML ONE (15:00)
[2023-01-08] MEDS ORDERED: SUCCINYLCHOLINE CHLORIDE 200 MG/10 ML VIAL IV ONE (15:00)
[2023-01-08] MEDS ORDERED: PROPOFOL 10 MG/ML 20 ML VIAL IV ONE (15:00)
[2023-01-08] MEDS ORDERED: MIDAZOLAM 2 MG/2 ML VIAL ONE (15:00)
[2023-01-08] MEDS ORDERED: DEXAMETHASONE SOD PHOSPHATE 4 MG/ML 1 ML VIAL ONE (15:00)
[2023-01-08] MEDS ORDERED: ROPIVACAINE 5 MG/ML 30 ML VIAL ONE (15:00)
[2023-01-08] MEDS ORDERED: LIDOCAINE 2% INJ 20 MG/ML (2 ML VIAL) ONE (15:00)
[2023-01-08] MEDS ORDERED: ROPIVACAINE 5 MG/ML 30 ML VIAL MISCELLANE ONE ×2 (15:33→16:05)
[2023-01-08] MEDS ORDERED: ceFAZolin 1,000 MG in SODIUM CHLORIDE 0.9% 1,000 ML IRRIGATION ONE (15:34)
--- NOTE | 2023-01-08 16:12 | P.OP ---
Date of Procedure: 01/08/23 Preoperative Diagnosis: Severe osteoarthritis left hip Postoperative Diagnosis: Severe osteoarthritis left hip Procedure(s) Performed: Left total hip arthroplasty with a direct anterior approach Implants: [employer] Polarstem standard size 4 [employer] R3, 3 hole hemispherical acetabular shell, 52 mm [employer] Reflection 6.5 mm cancellus screw, 20 mm, 25 mm [employer] R3, XLPE 20 acetabular liner [employer]hew Oxinium femoral head 36 mm, -3 All components were press-fit. The articulation is Oxinium on polyethylene. Anesthesia: spinal Surgeon: Giovanni Phillips Hamper Maker Machine #1: Adry Mayer Estimated Blood Loss (ml): 450 Pathology: none sent Condition: stable Disposition: PACU Indications for Procedure: After failure of conservative treatment we discussed the surgical and nonsurgical treatment options at length. Patient wishes to proceed with a total hip arthroplasty with a direct anterior approach. Complications specific to this procedure were discussed at length, including but not limited to infection, leg length discrepancy, dislocation, nerve injury, and fracture. Covid-19 was also discussed at length with the patient, and they are aware of the current policies and procedures. The patient was given the option of delaying surgery, but they elect to proceed knowing these risks. Patient is aware of all these complications and informed consent was obtained Operative Findings: The operative findings are consistent with severe osteoarthritis of the left hip Description of Procedure: The patient was seen and evaluated in the preoperative area and the consent was reviewed. The operative site was marked with a skin marker. The patient verified the procedure and operative site. A LUDWIG block was placed by anesthe rosibel in the preoperative area. The patient was then brought to the operating room and given preoperative antibiotics intravenously. 1 g of Tranexamic acid was also given intravenously. A spinal anesthetic was administered by the anesthesia department. The patient was then placed on the Underhill table with the bony prominences well-padded. The hip area was then prepped with a ChloraPrep solution and draped in the usual sterile fashion. A universal timeout was then performed, which confirmed the patient's name, surgical site, ALLERGIES, and procedure being performed on the consent. Next the incision site was located at 1 cm distal and 4 cm lateral to the anterior superior iliac spine. The skin and subcutaneous tissues were sharply incised. Incision was carefully dissected down to the fascia overlying the tensor fascia andrew muscle. This fascia was then incised in line with the muscle fibers. Care was taken to stay laterally in order to avoid injuring the lateral femoral cutaneous nerve. Next, using blunt finger dissection, the tensor fascia andrew muscle was dissected off its investing fascia. The muscle was then carefully retracted laterally with a cobra retractor over the lateral neck of the femur. Next, the circumflex vessels were identified and cauterized using the Aquamantis device. The anterior hip capsule was then exposed. The capsule was then opened and an inverted T fashion. The retractors were then placed intracapsularly. The retractors were maintained intracapsular throughout the procedure. The proximal femur was then visualized. Fluoroscopic x-rays were then taken in order to evaluate the preoperative leg lengths. A small amount of traction was placed on the leg. The femoral neck was then osteotomized at the appropriate level above the lesser trochanter. A small wedge of bone was then removed from the remaining femoral head. Next, using a corkscrew the femoral head was removed from the acetabulum. On gross visual inspection, the femoral head had complete loss of articular cartilage and multiple periarticular osteophytes. The femoral head was then measured. Attention was then turned to the acetabulum. The acetabulum was exposed and any remaining labrum was excised. Sequential reaming of the acetabulum was performed using fluoroscopic guidance until there was a good bed of bleeding cancellus bone. When the appropriate size was r eached, a trial was then placed. The position and fit of the trial was checked with fluoroscopy. The trial was then removed. Then, using fluoroscopic guidance, the final implant was impacted at 20 of anteversion and 40 of abduction, and fully seated in the acetabulum. 2 screws were then placed in the acetabulum. Again fluoroscopy was used to check position of the screws. Next, the liner was then impacted, with a 20 elevated liner located in the anterior superior quadrant. Component locking was confirmed. Attention was then directed to the femur. With the aid of the Underhill table, the femur was externally rotated to approximately 130, extended, and adducted under the opposite leg. A side hook was then placed under the proximal femur, and the side hook elevator was used to elevate the proximal femur while releasing the capsule. Retractors were then placed. A capsular release was performed, as well as a release of the conjoined tendon, which afforded excellent visualization of the proximal femur. Next, a box osteotome was used to lateralize the proximal femur. A supervisor coal handling was then used to locate the femoral canal. Sequential broaching was then performed with appropriate size which afforded excellent fixation in the proximal femur. A trial was then placed with appropriate head and neck, and the hip was gently reduced with the aid of the Underhill table. Fluoroscopy was then used to check position of the components, as well as to evaluate the leg lengths and offset. The leg lengths and offset were measured as closely as possible to ensure stability of the hip. The hip was then gently dislocated and the trials were then removed. Final implants were then impacted and the hip was again reduced. Final fluoroscopic x-rays confirmed that the components were in anatomic position. The leg lengths and offset were measured and were found to coincide with the trial measurements. The hip was also taken through range of motion, and found to be stable. The hip was then copiously irrigated with antibiotic solution with pulsatile lavage. The hip was then irrigated with Irrisept solution. The soft tissues were then injected with a ropivacaine solution. A second dose of 1 g of Tranexamic acid was also given intravenously. The fascia was then closed with 2-0 strata fix suture. The subcutaneous tissue was closed with 3-0 Vicryl. The subcuticular tissue was closed with 3-0 strata fix suture. The skin was then closed with Exofin skin glue. After the glue and dried, and Optifoam silver impregnated dressing was applied. The patient was then transferred to the recovery room in stable condition. The customer relations assistant CARYN Preston was required due to the complexity of surgery, and the need for skilled surgical supervisor for positioning, draping, exposure, retraction, and closure of the wound.
[2023-01-08] MEDS ORDERED: LACTATED RINGERS 1,000 ML IV ONE (16:45)
[2023-01-08 17:34] LABS: Glucose,Whole Blood 116 mg/dL (70-110)
--- NOTE | 2023-01-08 17:45 | XR ---
Intraoperative/procedural fluoroscopic services were provided left total hip arthroplasty. Total fluo roscopy time is 22.6 seconds with a total of 3 submitted images to PACS. Total DAP 1.1052 Gycm2. Ple ase see the operative note for further details.
[2023-01-08] MEDS ORDERED: METOCLOPRAMIDE 5 MG/ML 2 ML VIAL IVP PRN (18:18)
[2023-01-08 19:02] VITALS: RESP 16
--- NOTE | 2023-01-08 20:20 | P.ANPRN ---
Procedure Note - Anesthesia - Nerve Block Performed Left [place] Single Time Out Performed: Yes Date of Procedure: 01/08/23 Procedure Start Time: 14:17 Procedure Stop Time: 14:22 Location of Patient: PreOp Indication: Acute Post-Operative Pain, Requested by Surgeon Sedation Type: Sedate with meaningful contact maintained Preparation: Sterile Prep Position: Supine Needle Types: Pajunk Needle Gauge: 21 Ultrasound used to visualize needle placement: Yes Ultrasound used to observe medication spread: Yes Blood Aspirated: No Pain Paresthesia on Injection Noted: No Resistance on Injection: Normal Image Stored and Saved: Yes Events: Uneventful and Well Tolerated (Ropivacaine 0.5% 20 mL plus dexamethasone 4 mg)
[2023-01-08] MEDS: ACETAMINOPHEN TAB 500 MG TAB PO PRN (20:47)
[2023-01-08 20:49] LABS: Glucose,Whole Blood 136 mg/dL (70-110)
[2023-01-08] MEDS: SODIUM CHLORIDE 0.9% 1,000 ML IV SCH (20:55)
[2023-01-08] MEDS ORDERED: SENNOSIDES-DOCUSATE SODIUM 1 EACH TAB PO SCH (21:00)
[2023-01-08] MEDS ORDERED: PRAVASTATIN SODIUM 40 MG TAB PO SCH (21:00)
[2023-01-08] MEDS ORDERED: ACYCLOVIR 200 MG CAP PO PRN (21:00)
[2023-01-08] MEDS ORDERED: ALPRAZolam 0.5 MG TAB PO PRN (21:00)
[2023-01-08] MEDS: METOPROLOL TARTRATE 50 MG TAB PO SCH (22:28)
[2023-01-08] MEDS: APIXABAN 5 MG TAB PO SCH (22:28)
[2023-01-08] MEDS: GABAPENTIN 100 MG CAP PO SCH (22:29)
--- NOTE | 2023-01-08 23:01 | P.CONS ---
History of Present Illness - Reason for Consult Consult date: 01/08/23 Medical management Requesting physician: Giovanni Phillips - Chief Complaint Left hip surgery - History of Present Illness This is a pleasant 72-year-old patient who follows with Dr. Locke. Has undergone left hip arthroplasty. Postprocedure pain is controlled. No nausea vomiting. Did tolerate some supper. Patient had a massive PE back in April 2022. Was transferred to [facility]. Patient did have the blood clot extracted. It is on eliquis. Patient's eliquis was held 2 days prior to surgery. Given the high risk of PE and underlying breast cancer history we'll start the patient on eliquis tonight. Discussed this with the patient. And slight increased chance of bleeding at the operative site. 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 Follows with Dr. Swann. Estrogen positive. Varicose veins. Diabetes mellitus type 2 diet controlled. Anxiety. Social history: . No smoking no alcohol. Physical examination: VITAL SIGNS: 97.7, 83, 16, 103/67, 100% on 2 L GENERAL: BMI 32.1, declining but awake comfortable. EYES: Pupils equal. Conjunctiva normal. HEENT: External appearance of nose and ears normal, oral cavity grossly normal. NECK: JVD not raised; masses not palpable. HEART: First and second heart sounds are normal; no edema. LUNGS: Respiratory rate normal; clear to auscultation. ABDOMEN: Soft, nontender, liver spleen not palpable, no masses palpable. PSYCH: Alert and oriented x3; mood and affect normal. MUSCULOSKELETAL:No Clubbing/cyanosis;muscles-grossly intact. OA. Dressing over the incision site. NEUROLOGICAL: Cranial nerves grossly intact; no facial asymmetry, power and sensation grossly intact. LYMPHATICS: No lymph nodes palpable in the axilla and neck INVESTIGATIONS, reviewed in the clinical context: 12/29/2022: White count 1.8 hemoglobin 12.3 platelets 173 sodium 135 potassium 3.9 creatinine is 0.9 Assessment and plan: -Left total hip arthroplasty We will resume eliquis tonight because of high risk of thromboembolic pulmonary embolism. Given history of breast cancer and prior to large PE. -Breast cancer, estrogen positive with recurrence Follows with Dr. Swann -Diabetes mellitus type 2, diet controlled -History of DVT large PE. Resume eliquis -GERD PPI -Hyperlipidemia Pravachol 40 mg daily at bedtime -Essential hypertension Lopressor 50 mg twice a day. Hold hydrochlorothiazide. Hold Zestril for now. -Primary osteoarthritis Pain control when necessary -Obesity BMI 32.1 Weight loss measures. -Anxiety not otherwise specified Xanax when necessary Discussed with the patient. Questions answered. Consult Dr. Phillips. Past Medical History Past Medical History: Cancer, Diabetes Mellitus, Deep Vein Thrombosis (DVT), GERD/Reflux, Hyperlipidemia, Hypertension, Osteoarthritis (OA), Pulmonary Embolus (PE) Additional Past Medical History / Comment(s): Hx left breast cancer 06/15/15, with reoccurance in lymph node 02/2021, sees Dr Blackmon every 6 months. Varicose veins. Constipation. Type II diabetic diet controlled. Hx spontaneous DVT/PE, with surgical removal. History of Any Multi-Drug Resistant Organisms: None Reported Past Surgical History: Breast Surgery, Orthopedic Surgery, Tubal Ligation Additional Past Surgical History / Comment(s): Core biopsy - left breast Mar 29/2015, left mastectomy w/ lymphnode removal, post mastectomy reconstruction - not completed due to infection - senior wind energy consultant later removed, right hip replacement 2018, "blood clots sucked out of lungs Apr 2022". Past Anesthesia/Blood Transfusion Reactions: Postoperative Nausea & Vomiting (PONV) Additional Past Anesthesia/Blood Transfusion Reaction / Comm: CLAUSTROPHOBIA. Daughter-PONV. Past Psychological History: Anxiety Smoking Status: Never smoker Past Alcohol Use History: None Reported Past Drug Use History: None Reported - Past Family History Mother Family Medical History: No Reported History, Diabetes Mellitus Additional Family Medical History / Comment(s): states brother and father also both had diabetes. states father after knee surgery developed gangrene d/t lack of circulation and had amputation below knee Father Family Medical History: Diabetes Mellitus, Hypertension Additional Family Medical History / Comment(s): LEG AMPUTATED Brother(s) Family Medical History: Cancer Additional Family Medical History / Comment(s): Bladder cancer. Medications and Allergies Home Medications Medication Instructions Recorded Confirmed Type Metoprolol Tartrate [Lopressor] 50 mg PO BID 04/08/15 01/08/23 History Potassium Chloride [Klor-Con 10] 10 meq PO QAM 04/08/15 01/08/23 History Pravastatin Sodium 40 mg PO HS 04/08/15 01/08/23 History hydroCHLOROthiazide [Hydrodiuril] 25 mg PO QAM 04/08/15 01/08/23 History Omeprazole 20 mg PO QAM 01/17/21 01/08/23 History Acyclovir [Zovirax] 400 mg PO BID PRN 05/18/21 01/08/23 History Fulvestrant 0 mg IM Q30D 05/18/21 01/08/23 History Palbociclib [Ibrance] 125 mg PO DIRECTED 05/18/21 01/08/23 History ALPRAZolam [Xanax] 0.5 mg PO BID PRN 01/02/23 01/08/23 History Apixaban [Eliquis] 5 mg PO BID 01/02/23 01/08/23 History Gabapentin [Neurontin] 100 mg PO BID 01/02/23 01/08/23 History lisinopriL [Zestril] 5 mg PO QAM 01/02/23 01/08/23 History Acetaminophen-Codeine 300-30mg 1 - 2 tab PO Q6H PRN #30 tablet 01/08/23 Rx [Tylenol #3] Sennosides [Senokot] 2 tab PO DAILY PRN #60 tablet 01/08/23 Rx Allergies Allergy/AdvReac Type Severity Reaction Status Date / Time adhesive Allergy Rash/Hives Verified 01/08/23 13:43 Penicillins Allergy Rash/Hives Verified 01/08/23 13:43 sulfamethoxazole Allergy Rash/Hives Verified 01/08/23 13:43 [From Bactrim] trimethoprim [From Bactrim] Allergy Rash/Hives Verified 01/08/23 13:43 codeine AdvReac Nausea & Verified 01/08/23 13:43 Vomiting hydrocodone bitartrate AdvReac Nausea & Verified 01/08/23 13:43 [From [place]] Vomiting prochlorperazine edisylate AdvReac jaw locked Verified 01/08/23 13:43 [From Compazine] prochlorperazine maleate AdvReac JAW LOCKED, Verified 01/08/23 13:43 [From Compazine] Physical Exam Vitals: Vital Signs Temp Pulse Pulse Resp BP BP Pulse Ox 01/08/23 18:56 83 16 103/67 100 01/08/23 18:26 86 17 116/76 100 01/08/23 18:11 87 17 110/75 100 01/08/23 17:56 82 16 108/74 100 01/08/23 17:40 97.7 F 84 16 106/73 99 01/08/23 17:09 88 13 91/63 99 01/08/23 16:58 90 10 L 97/60 99 01/08/23 16:43 91 9 L 94/59 99 01/08/23 16:42 88 13 93/56 98 01/08/23 16:33 98.2 F 87 12 101/61 99 01/08/23 14:30 71 16 95/63 98 01/08/23 14:10 97.2 F L 71 16 107/64 98 Intake and Output 01/08/23 01/08/23 01/08/23 06:59 14:59 22:59 Intake Total 1950 Output Total 450 Balance 1500 Intake: IV 1950 Output: Estimated Blood Loss 450 Other: Weight 92.9 kg 92.9 kg Results Labs: Abnormal Lab Results - Last 24 Hours (Table) 01/08/23 01/08/23 01/08/23 Range/Units 13:42 17:32 20:46 POC Glucose (mg/dL) 113 H 116 H 136 H (70-110) mg/dL
[2023-01-09 02:12] VITALS: PULSE 78
[2023-01-09] MEDS: ACETAMINOPHEN TAB 500 MG TAB PO PRN ×3 (03:00→13:13)
[2023-01-09] MEDS: SODIUM CHLORIDE 0.9% 1,000 ML IV SCH (05:51)
[2023-01-09 06:25] LABS: Glucose,Whole Blood 150 mg/dL (70-110)
[2023-01-09 07:20] VITALS: BP 97/62; TEMP 98.3
[2023-01-09] MEDS ORDERED: PANTOPRAZOLE 40 MG TABLET PO SCH (07:30)
[2023-01-09 08:45] LABS: Basophils % (A) 0 %; Eosinophils % (A) 1 %; HCT 33.7 % (34.0-46.0); HGB 11.1 gm/dL (11.4-16.0); Hypochromasia Slight; Lymphocytes # (A) 0.7 k/uL (1.0-4.8); Lymphocytes % (A) 10 %; MCH 34.8 pg (25.0-35.0); MCV 105.4 fL (80.0-100.0); Macrocytosis Moderate; Mean Platelet Volume 9.9; Monocytes # (A) 0.5 k/uL (0-1.0); Monocytes % (A) 7 %; Neutrophils # (A) 5.3 k/uL (1.3-7.7); Neutrophils % (A) 81 %; Platelet Count 152 k/uL (150-450); RDW 14.2 % (11.5-15.5); WBC 6.6 k/uL (3.8-10.6)
[2023-01-09] MEDS ORDERED: APIXABAN 5 MG TAB PO SCH (09:00)
[2023-01-09] MEDS: GABAPENTIN 100 MG CAP PO SCH (09:23)
[2023-01-09] MEDS: APIXABAN 5 MG TAB PO SCH (09:23)
[2023-01-09] MEDS: METOPROLOL TARTRATE 50 MG TAB PO SCH (09:23)
--- NOTE | 2023-01-09 10:32 | P.DS ---
Providers Expected date of discharge: 01/09/23 Attending physician: Giovanni Phillips Consults: 01/08/23 14:34 Consult Physician Routine Consulting Provider: Magen Tse Consult Reason/Comments: medical management Do you want consulting provider notified?: Yes Primary care physician: Ishaan Locke - Discharge Diagnosis(es) (1) Osteoarthritis of left hip Current Visit: Yes Status: Acute (2) S/P total hip arthroplasty Current Visit: Yes Status: Acute Hospital Course: This is a 72-year-old female with known history of degenerative arthritis of the left hip. The patient presented for evaluation as an outpatient. After discussion and consideration patient elects to proceed with total hip arthroplasty. The patient is seen preoperatively by Dr. Phillips and medically cleared for surgery by their primary care physician. Patient is admitted to [facility] on 01/08/2023 for total hip arthroplasty. The procedure is performed without complication or sequelae. The patient is doing well postoperatively. Labs and vital signs are stable on day of discharge. On day of discharge patient's hip incision is healing well. There is minimal erythema. There is no drainage noted at this time. There is minimal soft tissue swelling to the hip and thigh. Patient has full foot and ankle motion without difficulty or pain. Calf is soft and nontender to palpation. Neurovascular status to the left lower extremity is intact. Patient is discharged home in good condition. Please see med rec for accurate list of home medications. Plan - Discharge Summary Discharge Rx Participant: No New Discharge Prescriptions: New Sennosides [Senokot] 2 tab PO DAILY PRN #60 tablet PRN Reason: Constipation Acetaminophen-Codeine 300-30mg [Tylenol #3] 1 - 2 tab PO Q6H PRN #30 tablet PRN Reason: Pain Ondansetron Odt [Zofran Odt] 1 tab PO Q8HR PRN #10 tab PRN Reason: Nausea No Action Pravastatin Sodium 40 mg PO HS Potassium Chloride [Klor-Con 10] 10 meq PO QAM hydroCHLOROthiazide [Hydrodiuril] 25 mg PO QAM Metoprolol Tartrate [Lopressor] 50 mg PO BID Fulvestrant 0 mg IM Q30D Acyclovir [Zovirax] 400 mg PO BID PRN PRN Reason: Cold Sores Apixaban [Eliquis] 5 mg PO BID Omeprazole 20 mg PO QAM Palbociclib [Ibrance] 125 mg PO DIRECTED ALPRAZolam [Xanax] 0.5 mg PO BID PRN PRN Reason: Anxiety lisinopriL [Zestril] 5 mg PO QAM Gabapentin [Neurontin] 100 mg PO BID Discharge Medication List Metoprolol Tartrate [Lopressor] 50 mg PO BID 04/08/15 [History] Potassium Chloride [Klor-Con 10] 10 meq PO QAM 04/08/15 [History] Pravastatin Sodium 40 mg PO HS 04/08/15 [History] hydroCHLOROthiazide [Hydrodiuril] 25 mg PO QAM 04/08/15 [History] Omeprazole 20 mg PO QAM 01/17/21 [History] Acyclovir [Zovirax] 400 mg PO BID PRN 05/18/21 [History] Fulvestrant 0 mg IM Q30D 05/18/21 [History] Palbociclib [Ibrance] 125 mg PO DIRECTED 05/18/21 [History] ALPRAZolam [Xanax] 0.5 mg PO BID PRN 01/02/23 [History] Apixaban [Eliquis] 5 mg PO BID 01/02/23 [History] Gabapentin [Neurontin] 100 mg PO BID 01/02/23 [History] lisinopriL [Zestril] 5 mg PO QAM 01/02/23 [History] Acetaminophen-Codeine 300-30mg [Tylenol #3] 1 - 2 tab PO Q6H PRN #30 tablet 01/08/23 [Rx] Sennosides [Senokot] 2 tab PO DAILY PRN #60 tablet 01/08/23 [Rx] Ondansetron Odt [Zofran Odt] 1 tab PO Q8HR PRN #10 tab 01/09/23 [Rx] Follow up Appointment(s)/Referral(s): Giovanni Phillips DO [Doctor of Osteopathic Medicine] - 2 Weeks Activity/Diet/Wound Care/Special Instructions: Weightbearing as tolerated with walker. Leave dressing intact. Dressing may be removed by home care nurse or by patient in 7 days. Then change dressing twice daily until follow up. May shower with initial dressing intact and after removal. If dressing become saturated, please remove. Please resume Eliquis. Recommend use of compression stockings daily until follow up to help prevent swelling and blood clots. May remove at night before sleeping. Please follow-up with [facility] in 2 weeks and call with any questions or concerns, . Discharge Disposition: HOME WITH HOME HEALTH SERVICES
[2023-01-09 11:14] LABS: Glucose,Whole Blood 155 mg/dL (70-110)
--- NOTE | 2023-01-09 21:17 | P.PN ---
Progress Note - Text Progress Note Date: 01/09/23 - Chief Complaint Left hip surgery - History of Present Illness This is a pleasant 72-year-old patient who follows with Dr. Locke. Has undergone left hip arthroplasty. Postprocedure pain is controlled. No nausea vomiting. Did tolerate some supper. Patient had a massive PE back in April 2022. Was transferred to [facility]. Patient did have the blood clot extracted. It is on eliquis. Patient's eliquis was held 2 days prior to surgery. Given the high risk of PE and underlying breast cancer history we'll start the patient on eliquis tonight. Discussed this with the patient. And slight increased chance of bleeding at the operative site. January 09: Doing well. Pain control. Blood pressure running on the lower side. Lisinopril and hydrochlorothiazide parameters given to the patient and . Daily blood pressure check at home. Questions answered. Current medications reviewed Past medical history to include: Diabetes mellitus type 2, DVT large PE that had to be extracted, GERD, hypertension, hyperlipidemia, osteoarthritis, left breast cancer in 2014 with reoccurrence in 2020. Follows with Dr. Swann. Estrogen positive. Varicose veins. Diabetes mellitus type 2 diet controlled. Anxiety. Social history: . No smoking no alcohol. Physical examination: VITAL SIGNS: 98.3, 78, 16, 97/62, 92% room air GENERAL: BMI 32.1, comfortable EYES: Pupils equal. Conjunctiva normal. HEENT: External appearance of nose and ears normal, oral cavity grossly normal. NECK: JVD not raised; masses not palpable. HEART: First and second heart sounds are normal; no edema. LUNGS: Respiratory rate normal; clear to auscultation. ABDOMEN: Soft, nontender, liver spleen not palpable, no masses palpable. PSYCH: Alert and oriented x3; mood and affect normal. MUSCULOSKELETAL:No Clubbing/cyanosis;muscles-grossly intact. OA. Dressing over the incision site. INVESTIGATIONS, reviewed in the clinical context: January 09: White count 6.6 hemoglobin 11.1 platelets 152 12/29/2022: White count 1.8 hemoglobin 12.3 platelets 173 sodium 135 potassium 3.9 creatinine is 0.9 Assessment and plan: -Left total hip arthroplasty Eliquis. -Acute postprocedure blood loss anemia expected from surgery Ferrous sulfate -Breast cancer, estrogen positive with recurrence Follows with Dr. Swann -Diabetes mellitus type 2, diet controlled -History of DVT large PE. eliquis -GERD PPI -Hyperlipidemia Pravachol 40 mg daily at bedtime -Essential hypertension Lopressor 50 mg twice a day. Hold hydrochlorothiazide. Hold Zestril for now. -Primary osteoarthritis Pain control when necessary -Obesity BMI 32.1 Weight loss measures. -Anxiety not otherwise specified Xanax when necessary Discussed with the patient. Blood pressure parameters given. Daily blood pressure check at home. Follow-up with PCP
== END 2023-01-09 13:23 | disposition home health service (06) ==
LOC: OR 12:54 → 4SSUR 16:55 → OR 01-09 13:23
PROVIDERS: ATTEND Orthopaedic Surgery
DX: M16.12 Unilateral primary osteoarthritis, left hip (principal); G89.18 Other acute postprocedural pain; M25.752 Osteophyte, left hip; I10 Essential (primary) hypertension; Z88.0 Allergy status to penicillin; E78.5 Hyperlipidemia, unspecified; E11.9 Type 2 diabetes mellitus without complications; Z86.59 Personal history of other mental and behavioral disorders; Z82.49 Family history of ischemic heart disease and other diseases of the circulatory system; Z83.3 Family history of diabetes mellitus; Z79.899 Other long term (current) drug therapy
CPT/HCPCS: 97162; 97166; 86900; 86901; 85025; 86850; 73501; 27130; J2250; J1100; J2765; J0690 ×3; J2405; J2795; 64447

== ENCOUNTER 2023-01-12 16:02 | Inpatient (IN) | payer MEDICARE, OTHER ==
--- NOTE | 2023-01-12 16:42 | ED ---
Lower Extremity Injury HPI - General Chief Complaint: Extremity Injury, Lower Stated Complaint: Left leg pain Time Seen by Provider: 01/12/23 16:06 Source: patient, EMS, RN notes reviewed, old records reviewed Mode of arrival: ambulatory Limitations: no limitations - History of Present Illness Initial Comments: This is a 72-year-old female to the ER today. Patient Dese for evaluation of left lower Shorty pain left hip pain left knee pain. Patient was going down a flight of stairs when she began to have severe pain in her left leg and her left leg got caught behind her she was going down the stairs. Patient is of recent left hip replacement MD Complaint: hip injury, thigh injury, knee injury, leg injury -: hour(s) Injury: Thigh: Left, Leg: Left, Knee: Left Type of Injury: hyperextension Place: home Severity: moderate Severity scale (1-10): 4 Improves With: nothing Worsens With: nothing Context: fall Other Symptoms: loss of consciousness Associated Symptoms: swelling, numbness Treatments Prior to Arrival: other (0) - Related Data Home Medications Medication Instructions Recorded Confirmed Metoprolol Tartrate [Lopressor] 50 mg PO BID 04/08/15 01/08/23 Potassium Chloride [Klor-Con 10 ER] 10 meq PO QAM 04/08/15 01/08/23 Pravastatin Sodium 40 mg PO HS 04/08/15 01/08/23 hydroCHLOROthiazide [Hydrodiuril] 25 mg PO QAM 04/08/15 01/08/23 Omeprazole 20 mg PO QAM 01/17/21 01/08/23 Acyclovir [Zovirax] 400 mg PO BID PRN 05/18/21 01/08/23 Fulvestrant 0 mg IM Q30D 05/18/21 01/08/23 Palbociclib [Ibrance] 125 mg PO DIRECTED 05/18/21 01/08/23 ALPRAZolam [Xanax] 0.5 mg PO BID PRN 01/02/23 01/08/23 Apixaban [Eliquis] 5 mg PO BID 01/02/23 01/08/23 Gabapentin [Neurontin] 100 mg PO BID 01/02/23 01/08/23 lisinopriL [Zestril] 5 mg PO QAM 01/02/23 01/08/23 Previous Rx's Medication Instructions Recorded Acetaminophen-Codeine 300-30mg 1 - 2 tab PO Q6H PRN #30 tablet 01/08/23 [Tylenol #3] Sennosides [Senokot] 2 tab PO DAILY PRN #60 tablet 01/08/23 Ferrous Sulfate [Feosol] 325 mg PO BID #60 tab 01/09/23 Ondansetron Odt [Zofran Odt] 1 tab PO Q8HR PRN #10 tab 01/09/23 Allergies Allergy/AdvReac Type Severity Reaction Status Date / Time adhesive Allergy Rash/Hives Verified 01/08/23 13:43 Penicillins Allergy Rash/Hives Verified 01/08/23 13:43 sulfamethoxazole Allergy Rash/Hives Verified 01/08/23 13:43 [From Bactrim] trimethoprim [From Bactrim] Allergy Rash/Hives Verified 01/08/23 13:43 codeine AdvReac Nausea & Verified 01/08/23 13:43 Vomiting hydrocodone bitartrate AdvReac Nausea & Verified 01/08/23 13:43 [From [place]] Vomiting prochlorperazine edisylate AdvReac jaw locked Verified 01/08/23 13:43 [From Compazine] prochlorperazine maleate AdvReac JAW LOCKED, Verified 01/08/23 13:43 [From Compazine] Review of Systems ROS Statement: Those systems with pertinent positive or pertinent negative responses have been documented in the HPI. ROS Other: All systems not noted in ROS Statement are negative. Past Medical History Past Medical History: Cancer, Diabetes Mellitus, GERD/Reflux, Hyperlipidemia, Hypertension Additional Past Medical History / Comment(s): lt breast cancer 06/15/15, varicos e veins, constipation,type II diabetic diet controlled History of Any Multi-Drug Resistant Organisms: None Reported Past Surgical History: Breast Surgery, Orthopedic Surgery, Tubal Ligation Additional Past Surgical History / Comment(s): Core biopsy - left breast Mar 29/2015, left mastectomy w/ lymphnode removal, post mastectomy reconstruction - not completed due to infection - service consultant later removed, right hip replacement 2018, "blood clots sucked out of lungs Apr 2022". Past Anesthesia/Blood Transfusion Reactions: Postoperative Nausea & Vomiting (PONV) Additional Past Anesthesia/Blood Transfusion Reaction / Comment(s): CLAUSTROPHOBIA. daughter-ponv Past Psychological History: No Psychological Hx Reported Smoking Status: Never smoker Past Alcohol Use History: None Reported Past Drug Use History: None Reported - Past Family History Mother Family Medical History: No Reported History, Diabetes Mellitus Additional Family Medical History / Comment(s): states brother and father also both had diabetes. states father after knee surgery developed gangrene d/t lack of circulation and had amputation below knee Father Family Medical History: Diabetes Mellitus, Hypertension Additional Family Medical History / Comment(s): LEG AMPUTATED Brother(s) Family Medical History: Cancer Additional Family Medical History / Comment(s): Bladder cancer. General Exam Limitations: no limitations General appearance: alert, in no apparent distress Head exam: Present: atraumatic, normocephalic, normal inspection Eye exam: Present: normal appearance, PERRL, EOMI. Absent: scleral icterus, conjunctival injection, periorbital swelling ENT exam: Present: normal exam, mucous membranes moist Neck exam: Present: normal inspection. Absent: tenderness, meningismus, lymphadenopathy Respiratory exam: Present: normal lung sounds bilaterally. Absent: respiratory distress, wheezes, rales, rhonchi, stridor Cardiovascular Exam: Present: regular rate, normal rhythm, normal heart sounds. Absent: systolic murmur, diastolic murmur, rubs, gallop, clicks GI/Abdominal exam: Present: soft, normal bowel sounds. Absent: distended, tenderness, guarding, rebound, rigid Extremities exam: Present: normal inspection, full ROM, normal capillary refill. Absent: tenderness, pedal edema, joint swelling, calf tenderness Back exam: Present: normal inspection Neurological exam: Present: alert, oriented X3, CN II-XII intact Psychiatric exam: Present: normal affect, normal mood Skin exam: Present: warm, dry, intact, normal color. Absent: rash Course Vital Signs 01/12/23 16:04 Pulse Rate 87 Respiratory 15 Rate Blood Pressure 134/81 O2 Sat by Pulse 99 Oximetry - Reevaluation(s) Reevaluation #1: 01/12/23 17:07 Medical records reviewed Reevaluation #2: 01/12/23 17:07 Patient not requiring pain medication Reevaluation #4: 01/12/23 17:07 Was pt. sent in by a medical professional or institution? @ -no Did you speak to anyone other than the patient for history? @ -no Did you review nursing and triage notes? @ -agree Were old charts reviewed? @ -yes Differential Diagnosis? @ -prior EKG interpreted by me (3pts min.)? @ -yes X-rays interpreted by me (1pt min.)? @ -yes CT interpreted by me (1pt min.)? @ -no U/S interpreted by me (1pt. min.)? @ -no What testing was considered but not performed? (CT, X-rays, U/S, labs)? Why? @ -no What meds were considered but not given? Why? @ -no Did you discuss the management of the patient with other professionals? @ -no Did you reconcile home meds? @ -no Was smoking cessation discussed for >3mins.? @ -no Was critical care preformed (if so, how long)? @ -no Were there social determinants of health that impacted care today? How? (Homelessness, low income, unemployed, alcoholism, drug addiction, transportation, low edu. Level, literacy, decrease access to med. care, fci, rehab)? @ -no Was there de-escalation of care discussed even if they declined? (Discuss DNR or withdrawal of care, Hospice)? @ -no What co-morbidities impacted this encounter? (DM, HTN, Smoking, COPD, CAD, Cancer, CVA, Hep., AIDS, mental health diagnosis, sleep apnea, morbid obesity)? @ -none Was patient admitted / discharged? @ - Undiagnosed new problem with uncertain prognosis? @ -no Drug Therapy requiring intensive monitoring for toxicity (Heparin, Nitro, Insulin, Cardizem)? @ -no Were any procedures done? @ -no Diagnosis/symptom? @ - Acute, or Chronic, or Acute on Chronic? @ -acute Uncomplicated (without systemic symptoms) or Complicated (systemic symptoms)? @ -complicated Side effects of treatment? @ -no Exacerbation, Progression, or Severe Exacerbation] @ -no Poses a threat to life or bodily function? @ -yes Disposition Clinical Impression: Closed left hip fracture, Periprosthetic fracture around internal prosthetic hip joint Disposition: ADMITTED IP TO THIS [facility] Condition: Good Is patient prescribed a controlled substance at d/c from ED?: No Referrals: Ishaan Locke MD [Primary Care Provider] - 1-2 days Time of Disposition: 21:00
--- NOTE | 2023-01-12 17:10 | XR ---
EXAMINATION TYPE: XR Hip LT and AP Pelvis DATE OF EXAM: 01/12/2023 4:50 PM INDICATION: Patient age:Female; 72 years old; Reason for study: fall; COMPARISON: None TECHNIQUE: The lower hip was examined in the frontal and lateral projections and a AP pelvis. FINDINGS: Post arthroplasty changes, hardware is intact, alignment is appropriate. No evidence of fra cture. No evidence of any acute osseous pathology or joint dislocation. IMPRESSION: Hip arthroplasty with hardware intact and in appropriate alignment. No acute fracture.
--- NOTE | 2023-01-12 17:13 | XR ---
EXAMINATION TYPE: XR knee complete LT DATE OF EXAM: 01/12/2023 4:50 PM INDICATION: Patient age:Female; 72 years old; Reason for study: fall; COMPARISON: None. TECHNIQUE: The Left knee(s) was examined in Frontal, lateral and oblique projections. FINDINGS: No evidence of any acute osseous pathology, soft tissue swelling, or joint effusion is no hugo. Tricompartmental osteophyte formation involving the femoral condyles, tibial plateau and patella. Mo derate joint space narrowing most pronounced and medially. A fabella is present. IMPRESSION: 1. No acute osseous pathology. 2. Moderate to severe tricompartmental osteoarthritic changes.
--- NOTE | 2023-01-12 19:53 | CT ---
EXAMINATION TYPE: CT lower extremity LT wo con CT DLP: 1381.3 mGycm, Automated exposure control for dose reduction was used. DATE OF EXAM: 01/12/2023 7:28 PM COMPARISON: Left hip 01/12/2023 CLINICAL INDICATION:Female, 72 years old with history of pain; PHH, left hip replacement on 01/08/23, p t fell 01/12/23, pain in posterior femur and knee TECHNIQUE: Axial images were obtained of the left lower extremity . Additional coronal and sagittal reformatted images and soft tissue and bone window were obtained for review. 3-D reconstruction was c reated on a separate workstation. Contrast used: None Oral contrast used: None FINDINGS: Left hip arthroplasty changes. Hardware appears intact. There is fracture of the superior a cetabulum. This is is not well appreciated on radiograph same day. Additional hairline fracture nondi splaced extending into the inferior pubic ramus from the acetabulum is present series 201 image 29. Degeneration changes of the knee with osteophyte formation of the tibial plateau femoral condyles and patella. There is a joint effusion. No evidence fracture of the knee. There is a medial femoral cond yle sclerotic foci of gas as well as one more anteriorly likely representing bone islands. IMPRESSION: 1. Left hip arthroplasty. Hardware is intact. Acute periprosthetic fractures involving the acetabulu m with a superior acetabulum minimally displaced fracture as well as hairline fracture extending into the inferior pubic ramus. 2. Moderate to severe degeneration of the knee no evidence for knee fracture. There is a knee joint effusion present. Consider further evaluation MRI if there is suspicion for fracture.
[2023-01-12] MEDS ORDERED: SODIUM CHLORIDE 0.9% 1,000 ML IV STA (20:57)
[2023-01-12] MEDS ORDERED: NALOXONE 0.4 MG/ML 1 ML VIAL IV PRN (20:57)
[2023-01-12 22:22] LABS: Basophils % (A) 0 %; Eosinophils # (A) 0.1 k/uL (0-0.7); Eosinophils % (A) 2 %; HCT 30.7 % (34.0-46.0); HGB 10.3 gm/dL (11.4-16.0); Lymphocytes # (A) 0.8 k/uL (1.0-4.8); Lymphocytes % (A) 18 %; MCH 33.3 pg (25.0-35.0); MCHC 33.5 g/dL (31.0-37.0); Mean Platelet Volume 10.3; Monocytes # (A) 0.2 k/uL (0-1.0); Monocytes % (A) 5 %; Neutrophils # (A) 3.2 k/uL (1.3-7.7); Neutrophils % (A) 72 %; Platelet Count 170 k/uL (150-450); RBC 3.08 m/uL (3.80-5.40); RDW 14.4 % (11.5-15.5); WBC 4.5 k/uL (3.8-10.6)
[2023-01-12 22:24] LABS: MCV 99.5 fL (80.0-100.0)
[2023-01-12 22:35] LABS: Glucose 105 mg/dL (74-99); Total Protein 5.9 g/dL (6.3-8.2)
[2023-01-12 22:36] LABS: INR 0.9 (<1.2); Partial Thromboplastin Time 22.2 sec (22.0-30.0); Prothrombin Time 9.5 sec (9.0-12.0)
[2023-01-12 22:37] LABS: ALT 24 U/L (4-34); AST 40 U/L (14-36); African American GFR (CKD) >90 (>60 ml/min/1.73 sqM); Albumin 3.3 g/dL (3.5-5.0); Alkaline Phosphatase 57 U/L (38-126); Anion Gap 7 mmol/L; Blood Urea Nitrogen 16 mg/dL (7-17); Calcium 8.8 mg/dL (8.4-10.2); Carbon Dioxide 28 mmol/L (22-30); Chloride 101 mmol/L (98-107); Magnesium 2.2 mg/dL (1.6-2.3); Non-African American GFR(CKD) 88 (>60 ml/min/1.73 sqM); Phosphorus 3.6 mg/dL (2.5-4.5); Potassium 3.7 mmol/L (3.5-5.1); Sodium 136 mmol/L (137-145); Total Bilirubin 1.5 mg/dL (0.2-1.3)
[2023-01-13] MEDS: ACETAMINOPHEN TAB 325 MG TAB PO PRN ×4 (03:24→21:45)
[2023-01-13 08:24] LABS: Glucose,Whole Blood 105 mg/dL (70-110)
[2023-01-13] MEDS ORDERED: hydroCHLOROthiazide 25 MG TAB PO SCH (09:30)
[2023-01-13] MEDS ORDERED: lisinopriL 5 MG TAB PO SCH (09:30)
[2023-01-13] MEDS ORDERED: methylPREDNISolone ACETATE 40 MG/ML 1 ML VIAL INTRABURSA STA (09:55)
[2023-01-13] MEDS: GABAPENTIN 100 MG CAP PO SCH ×2 (10:04→21:43)
[2023-01-13] MEDS: APIXABAN 5 MG TAB PO SCH ×2 (10:04→21:43)
[2023-01-13] MEDS: PANTOPRAZOLE 40 MG TABLET PO SCH (10:04)
[2023-01-13] MEDS: POTASSIUM CHLORIDE ER 10 MEQ TAB.ER.PRT PO SCH (10:04)
[2023-01-13] MEDS: METOPROLOL TARTRATE 50 MG TAB PO SCH ×2 (10:04→21:43)
--- NOTE | 2023-01-13 10:44 | P.HPOR ---
History of Present Illness H&P Date: 01/13/23 Chief Complaint: Left hip pain. This is a 72-year-old female who is status post total left hip arthroplasty with direct anterior approach on 01/08/2023. She states that she was going down her steps to the garage yesterday when she lost her footing and slipped. She states that she did not actually fall but was caught by her . She states that she had left hip, thigh and knee pain immediately. She presented to the emergency department for evaluation with concern that she may have damaged her hip replacement. She states that she was having some knee pain and swelling prior to the fall. She denies fever or chills, nausea or vomiting. 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 Past Anesthesia/Blood Transfusion Reactions: Postoperative Nausea & Vomiting (PONV) Additional Past Anesthesia/Blood Transfusion Reaction / Comment(s): CLAUSTROPHOBIA. daughter-ponv Past Psychological History: No Psychological Hx Reported Smoking Status: Never smoker Past Alcohol Use History: None Reported Past Drug Use History: None Reported - Past Family History Mother Family Medical History: No Reported History, Diabetes Mellitus Additional Family Medical History / Comment(s): states brother and father also both had diabetes. states father after knee surgery developed gangrene d/t lack of circulation and had amputation below knee Father Family Medical History: Diabetes Mellitus, Hypertension Additional Family Medical History / Comment(s): LEG AMPUTATED Brother(s) Family Medical History: Cancer Additional Family Medical History / Comment(s): Bladder cancer. Medications and Allergies Home Medications Medication Instructions Recorded Confirmed Type Metoprolol Tartrate [Lopressor] 50 mg PO BID 04/08/15 01/12/23 History Potassium Chloride [Klor-Con 10 ER] 10 meq PO DIRECTED 10/01/15 07/07/23 History Pravastatin Sodium 40 mg PO HS 04/08/15 01/12/23 History hydroCHLOROthiazide [Hydrodiuril] 25 mg PO DIRECTED 04/08/15 01/12/23 History Omeprazole 20 mg PO DAILY 01/17/21 01/12/23 History Fulvestrant 1 dose IM Q30D 05/18/21 01/12/23 History Palbociclib [Ibrance] 125 mg PO DIRECTED 05/18/21 01/12/23 History ALPRAZolam [Xanax] 0.5 mg PO BID PRN 01/02/23 01/12/23 History Apixaban [Eliquis] 5 mg PO BID 01/02/23 01/12/23 History Gabapentin [Neurontin] 100 mg PO BID 01/02/23 01/12/23 History lisinopriL [Zestril] 5 mg PO DIRECTED 01/02/23 01/12/23 History Acetaminophen-Codeine 300-30mg 1 - 2 tab PO Q6H PRN #30 tablet 01/08/23 01/12/23 Rx [Tylenol #3] Ferrous Sulfate [Feosol] 325 mg PO DIRECTED 01/12/23 01/12/23 History Ondansetron Odt [Zofran Odt] 4 mg PO Q8HR PRN 01/12/23 01/12/23 History Sennosides [Senokot] 17.2 tab PO DAILY PRN 01/12/23 01/12/23 History Allergies Allergy/AdvReac Type Severity Reaction Status Date / Time adhesive Allergy Rash/Hives Verified 01/12/23 21:45 Penicillins Allergy Rash/Hives Verified 01/12/23 21:45 sulfamethoxazole Allergy Rash/Hives Verified 01/12/23 21:45 [From Bactrim] trimethoprim [From Bactrim] Allergy Rash/Hives Verified 01/12/23 21:45 codeine AdvReac Nausea & Verified 01/12/23 21:45 Vomiting hydrocodone bitartrate AdvReac Nausea & Verified 01/12/23 21:45 [From [place]] Vomiting prochlorperazine edisylate AdvReac jaw locked Verified 01/12/23 21:45 [From Compazine] prochlorperazine maleate AdvReac JAW LOCKED, Verified 01/12/23 21:45 [From Compazine] Physical Examination This is a pleasant 72-year-old female in no acute distress. She is alert and oriented 3. She is evaluated in the emergency department. Exam of the head neck reveal no deformities. She has full cervical spine motion without difficulty or pain. Exam of the upper extremities is unremarkable. Full shoulder, elbow, wrist and finger motion bilaterally. Exam of the lower extremities reveals her dressing to her left hip is clean, dry and intact. She is able to move her legs freely in bed without too much difficulty. There is soft tissue swelling noted to the left hip, thigh and knee. There is a 1+ knee effusion noted. She has full foot and ankle motion bilaterally. Neurovascular status to the lower extremities is intact. Results X-rays and computed tomography scan of the hip and knee reveal a minimally displaced acetabular fractures to the left hip. Components are in good position and alignment. The knee has degenerative changes without evidence of fracture or bony abnormality. - Labs Labs: Abnormal Lab Results - Last 24 Hours (Table) 01/12/23 01/12/23 Range/Units 22:02 22:02 RBC 3.08 L (3.80-5.40) m/uL Hgb 10.3 L (11.4-16.0) gm/dL Hct 30.7 L (34.0-46.0) % Lymphocytes # 0.8 L (1.0-4.8) k/uL Sodium 136 L (137-145) mmol/L Glucose 105 H (74-99) mg/dL Total Bilirubin 1.5 H (0.2-1.3) mg/dL AST 40 H (14-36) U/L Total Protein 5.9 L (6.3-8.2) g/dL Albumin 3.3 L (3.5-5.0) g/dL H & H 01/12/23 Range/Units 22:02 Hgb 10.3 L (11.4-16.0) gm/dL Hct 30.7 L (34.0-46.0) % Coagulation 01/12/23 Range/Units 22:02 INR 0.9 (<1.2) Result Diagrams: 01/12/23 22:02 01/12/23 22:02 Assessment and Plan (1) Degenerative arthritis of left knee Current Visit: Yes Status: Acute Code(s): M17.12 - UNILATERAL PRIMARY OSTEOARTHRITIS, LEFT KNEE SNOMED Code(s): 145059325010858 (2) Effusion, left knee Current Visit: Yes Status: Acute Code(s): M25.462 - EFFUSION, LEFT KNEE SNOMED Code(s): 836199797802531 (3) Periprosthetic fracture around internal prosthetic hip joint Current Visit: Yes Status: Acute Code(s): M97.8XXA - PERIPROSTH FRACTURE AROUND OTHER INTERNAL PROSTH JOINT, INIT; Z96.649 - PRESENCE OF UNSPECIFIED ARTIFICIAL HIP JOINT SNOMED Code(s): 985842136 (4) S/P total hip arthroplasty Current Visit: No Status: Acute Code(s): Z96.649 - PRESENCE OF UNSPECIFIED ARTIFICIAL HIP JOINT SNOMED Code(s): 267051468427 Plan: The clinical and x-ray findings are discussed with the patient. It is recommended that the patient be nonweightbearing to the left lower extremity with walker. She will be admitted for pain management and PT evaluation. Her left knee is aspirated today in the emergency department obtaining 10 mL of clear yellow joint fluid. No evidence of blood. We discussed the possibility of cortisone injection to the left knee. The Depo-Medrol has been ordered. We will await PT evaluation and discussed possibility of inpatient rehab versus home with home care.
[2023-01-13] MEDS ORDERED: ONDANSETRON ODT 4 MG TAB PO PRN (11:36)
[2023-01-13] MEDS ORDERED: LACTULOSE 20 GM/30 ML CUP PO ONE (12:50)
--- NOTE | 2023-01-13 13:55 | P.CONS ---
History of Present Illness - Reason for Consult Consult date: 01/13/23 Medical management Requesting physician: Giovanni Phillips - Chief Complaint Left hip pain - History of Present Illness pleasant 72-year-old patient who follows with Dr. Locke. 01/08/2023: left hip arthroplasty, by Dr. Giovanni Phillips. Discharged January 09. Was doing well. Yesterday patient took a misstep on the stairs and fell and was caught by her . X-ray of the left hip was unremarkable. Computed tomography scan showed acute periprosthetic fracture involving the acetabulum at the superior acetabulum minimally displaced fracture. Hairline fracture extending into the inferior pubic gram eye. Deep-seated G changes. Left knee effusion. Patient has not had a bowel movement since she left the hospital. Currently in good spirits. Per orthopedics no surgical intervention. Nonweightbearing. at the bedside. Considering rehab. 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 Follows with Dr. Swann. Estrogen positive. Varicose veins. Diabetes mellitus type 2 diet controlled. Anxiety. Social history: . No smoking no alcohol. Physical examination: VITAL SIGNS: 97.8, 72, 16, 11 7 x 69, 98% room air GENERAL: BMI 32. Declining, comfortable EYES: Pupils equal. Conjunctiva normal. HEENT: External appearance of nose and ears normal, oral cavity grossly normal. NECK: JVD not raised; masses not palpable. HEART: First and second heart sounds are normal; no edema. LUNGS: Respiratory rate normal; clear to auscultation. ABDOMEN: Soft, nontender, liver spleen not palpable, no masses palpable. PSYCH: Alert and oriented x3; mood and affect normal. MUSCULOSKELETAL:No Clubbing/cyanosis;muscles-grossly intact. OA. Limited range of motion left hip. NEUROLOGICAL: Cranial nerves grossly intact; no facial asymmetry, power and sensation grossly intact. LYMPHATICS: No lymph nodes palpable in the axilla and neck INVESTIGATIONS, reviewed in the clinical context: January 12: White count 4.5 hemoglobin 10.3 platelets 170 potassium 3.[address] scans left hip:acute periprosthetic fracture involving the acetabulum at the superior acetabulum minimally displaced fracture. Hairline fracture extending into the inferior pubic gram eye. Deep-seated G changes. Left knee effusion. Previous labs January 09: White count 6.6 hemoglobin 11.1 platelets 152 Assessment and plan: -Acute left hip periprosthetic fracture involving the acetabulum at the superior astragal of minimally displaced fracture. Hairline fracture extending into the inferior pubic rami. No surgical intervention. Nonweightbearing. Pain control. -Left total hip arthroplasty on January [address] Giovanni Sinclair. -Acute postprocedure blood loss anemia expected from surgery Ferrous sulfate -Breast cancer, estrogen positive with recurrence Follows with Dr. Swann -Diabetes mellitus type 2, diet controlled -History of DVT large PE. eliquis -GERD PPI -Hyperlipidemia Pravachol 40 mg daily at bedtime -Essential hypertension Lopressor 50 mg twice a day. Hold hydrochlorothiazide. Hold Zestril for now. -Primary osteoarthritis Pain control when necessary -Obesity BMI 32.1 Weight loss measures. -Anxiety not otherwise specified Xanax when necessary Care was discussed with the patient and the at the bedside. Questions answered Thank you Dr. Phillips Past Medical History Past Medical History: Cancer, Diabetes Mellitus, GERD/Reflux, Hyperlipidemia, Hypertension Additional Past Medical History / Comment(s): lt breast cancer 06/15/15, varico se veins, constipation,type II diabetic diet controlled History of Any Multi-Drug Resistant Organisms: None Reported Past Surgical History: Breast Surgery, Orthopedic Surgery, Tubal Ligation Additional Past Surgical History / Comment(s): Core biopsy - left breast Mar 29/2015, left mastectomy w/ lymphnode removal, post mastectomy reconstruction - not completed due to infection - upper marker later removed, right hip replacement 2018, "blood clots sucked out of lungs Apr 2022". Past Anesthesia/Blood Transfusion Reactions: Postoperative Nausea & Vomiting (PONV) Additional Past Anesthesia/Blood Transfusion Reaction / Comm: CLAUSTROPHOBIA. daughter-ponv Past Psychological History: No Psychological Hx Reported Smoking Status: Never smoker Past Alcohol Use History: None Reported Past Drug Use History: None Reported - Past Family History Mother Family Medical History: No Reported History, Diabetes Mellitus Additional Family Medical History / Comment(s): [facility] brother and father also both had diabetes. states father after knee surgery developed gangrene d/t lack of circulation and had amputation below knee Father Family Medical History: Diabetes Mellitus, Hypertension Additional Family Medical History / Comment(s): LEG AMPUTATED Brother(s) Family Medical History: Cancer Additional Family Medical History / Comment(s): Bladder cancer. Medications and Allergies Home Medications Medication Instructions Recorded Confirmed Type Metoprolol Tartrate [Lopressor] 50 mg PO BID 04/08/15 01/12/23 History Potassium Chloride [Klor-Con 10 ER] 10 meq PO DIRECTED 04/08/15 01/12/23 History Pravastatin Sodium 40 mg PO HS 04/08/15 01/12/23 History hydroCHLOROthiazide [Hydrodiuril] 25 mg PO DIRECTED 04/08/15 01/12/23 History Omeprazole 20 mg PO DAILY 01/17/21 01/12/23 History Fulvestrant 1 dose IM Q30D 05/18/21 01/12/23 History Palbociclib [Ibrance] 125 mg PO DIRECTED 05/18/21 01/12/23 History ALPRAZolam [Xanax] 0.5 mg PO BID PRN 01/02/23 01/12/23 History Apixaban [Eliquis] 5 mg PO BID 01/02/23 01/12/23 History Gabapentin [Neurontin] 100 mg PO BID 01/02/23 01/12/23 History lisinopriL [Zestril] 5 mg PO DIRECTED 01/02/23 01/12/23 History Acetaminophen-Codeine 300-30mg 1 - 2 tab PO Q6H PRN #30 tablet 01/08/23 01/12/23 Rx [Tylenol #3] Ferrous Sulfate [Feosol] 325 mg PO DIRECTED 01/12/23 01/12/23 History Ondansetron Odt [Zofran Odt] 4 mg PO Q8HR PRN 01/12/23 01/12/23 History Sennosides [Senokot] 17.2 tab PO DAILY PRN 01/12/23 01/12/23 History Allergies Allergy/AdvReac Type Severity Reaction Status Date / Time adhesive Allergy Rash/Hives Verified 07/07/23 21:45 Penicillins Allergy Rash/Hives Verified 01/12/23 21:45 sulfamethoxazole Allergy Rash/Hives Verified 01/12/23 21:45 [From Bactrim] trimethoprim [From Bactrim] Allergy Rash/Hives Verified 01/12/23 21:45 codeine AdvReac Nausea & Verified 01/12/23 21:45 Vomiting hydrocodone bitartrate AdvReac Nausea & Verified 01/12/23 21:45 [From [place]] Vomiting prochlorperazine edisylate AdvReac jaw locked Verified 01/12/23 21:45 [From Compazine] prochlorperazine maleate AdvReac JAW LOCKED, Verified 01/12/23 21:45 [From Compazine] Physical Exam Vitals: Vital Signs Temp Pulse Resp BP Pulse Ox 01/13/23 12:30 97.8 F 72 16 117/69 98 01/13/23 08:40 97 18 131/85 96 01/12/23 22:05 98.1 F 100 18 118/78 95 01/12/23 16:04 87 15 134/81 99 Intake and Output 01/12/23 01/13/23 01/13/23 22:59 06:59 14:59 Other: Weight 92.533 kg Results CBC & Chem 7: 01/12/23 22:02 01/12/23 22:02 Labs: Abnormal Lab Results - Last 24 Hours (Table) 01/12/23 01/12/23 Range/Units 22:02 22:02 RBC 3.08 L (3.80-5.40) m/uL Hgb 10.3 L (11.4-16.0) gm/dL Hct 30.7 L (34.0-46.0) % Lymphocytes # 0.8 L (1.0-4.8) k/uL Sodium 136 L (137-145) mmol/L Glucose 105 H (74-99) mg/dL Total Bilirubin 1.5 H (0.2-1.3) mg/dL AST 40 H (14-36) U/L Total Protein 5.9 L (6.3-8.2) g/dL Albumin 3.3 L (3.5-5.0) g/dL
[2023-01-13 17:28] LABS: Glucose,Whole Blood 117 mg/dL (70-110)
[2023-01-13 20:33] LABS: Glucose,Whole Blood 125 mg/dL (70-110)
[2023-01-13] MEDS: PRAVASTATIN SODIUM 40 MG TAB PO SCH (21:43)
[2023-01-14] MEDS: ACETAMINOPHEN TAB 325 MG TAB PO PRN ×2 (05:00→11:51)
[2023-01-14 06:08] LABS: Glucose,Whole Blood 119 mg/dL (70-110)
[2023-01-14] MEDS ORDERED: methylPREDNISolone ACETATE 40 MG/ML 1 ML VIAL INTRABURSA ONE (07:30)
[2023-01-14] MEDS: APIXABAN 5 MG TAB PO SCH ×2 (08:02→21:58)
[2023-01-14] MEDS: METOPROLOL TARTRATE 50 MG TAB PO SCH ×2 (08:02→21:58)
[2023-01-14] MEDS: PANTOPRAZOLE 40 MG TABLET PO SCH (08:02)
[2023-01-14] MEDS: POTASSIUM CHLORIDE ER 10 MEQ TAB.ER.PRT PO SCH (08:02)
[2023-01-14] MEDS: GABAPENTIN 100 MG CAP PO SCH ×2 (08:02→21:58)
[2023-01-14] MEDS: SENNOSIDES 8.6 MG TAB PO PRN (08:10)
[2023-01-14] MEDS ORDERED: NON FORMULARY DRUG (Omeprazole [Omeprazole] 20 MG Capsule.Dr) PO SCH (09:00)
[2023-01-14] MEDS ORDERED: LIDOCAINE 2% INJ 20 MG/ML (20 ML MDV) SQ ONE (09:20)
--- NOTE | 2023-01-14 11:12 | P.PN ---
Subjective Progress Note Date: 01/14/23 Principal diagnosis: Periprosthetic acetabular fracture left hip. Status post total arthroplasty. Degenerative arthritis left knee. This is a 72-year-old female who is status post total left hip arthroplasty with direct anterior approach on 01/08/2023. She states that she was going down her steps to the garage yesterday when she lost her footing and slipped. She states that she did not actually fall but was caught by her . She states that she had left hip, thigh and knee pain immediately. She presented to the emergency department for evaluation with concern that she may have damaged her hip replacement. She states that she was having some knee pain and swelling prior to the fall. She denies fever or chills, nausea or vomiting. 01/14/2023: The patient is doing fairly well from an orthopedic standpoint. She continues to complain of thigh and knee pain. Her left knee was aspirated yesterday obtaining 10 mL clear joint fluid. Vital signs are stable. She is afebrile. Objective - Vital Signs Vital signs: Vital Signs Temp 98.7 F 01/14/23 07:24 Pulse 85 01/14/23 08:05 Resp 18 01/14/23 08:05 BP 125/81 01/14/23 07:24 Pulse Ox 96 01/14/23 07:24 FiO2 Intake & Output 01/13/23 01/14/23 01/14/23 18:59 06:59 18:59 Output Total 50 600 Balance -50 -600 Output: Urine 50 600 Other: Voiding Method External Catheter - Exam This is a pleasant 72-year-old female in no acute distress. She is alert and oriented 3. Exam of the left hip reveals that her dressing is clean, dry and intact. Mild soft tissue swelling to the thigh and knee. The effusion is improved today. She is able to actively flex her knee and actively extend her leg with pain. She has full foot and ankle motion without difficulty or pain. Neurovascular status to the lower extremity is intact. - Labs CBC & Chem 7: 01/12/23 22:02 01/12/23 22:02 Labs: Abnormal Lab Results - Last 24 Hours (Table) 01/13/23 01/13/23 01/14/23 Range/Units 17:27 20:32 06:05 POC Glucose (mg/dL) 117 H 125 H 119 H (70-110) mg/dL Assessment and Plan (1) Degenerative arthritis of left knee Current Visit: Yes Status: Acute Code(s): M17.12 - UNILATERAL PRIMARY OSTEOARTHRITIS, LEFT KNEE SNOMED Code(s): 650374945775701 (2) Effusion, left knee Current Visit: Yes Status: Acute Code(s): M25.462 - EFFUSION, LEFT KNEE SNOMED Code(s): 795582886813002 (3) Periprosthetic fracture around internal prosthetic hip joint Current Visit: Yes Status: Acute Code(s): M97.8XXA - PERIPROSTH FRACTURE AROUND OTHER INTERNAL PROSTH JOINT, INIT; Z96.649 - PRESENCE OF UNSPECIFIED ARTIFICIAL HIP JOINT SNOMED Code(s): 061182827 (4) S/P total hip arthroplasty Current Visit: No Status: Acute Code(s): Z96.649 - PRESENCE OF UNSPECIFIED ARTIFICIAL HIP JOINT SNOMED Code(s): 850356765974 Plan: The clinical and x-ray findings are discussed with the patient. She may be toe- touch weightbearing to the left lower extremity with walker. Her left knee was injected with Depo-Medrol today. We're planning discharge to home with home care versus inpatient rehab.
[2023-01-14 11:31] LABS: Glucose,Whole Blood 108 mg/dL (70-110)
[2023-01-14] MEDS ORDERED: bisacodyL 10 MG SUPP RECTAL STA (11:49)
[2023-01-14 16:46] LABS: Glucose,Whole Blood 140 mg/dL (70-110)
[2023-01-14] MEDS: ACETAMINOPHEN TAB 325 MG TAB PO SCH (18:20)
--- NOTE | 2023-01-14 20:17 | P.PN ---
Progress Note - Text Progress Note Date: 01/14/23 - Chief Complaint Left hip pain Hospital course: pleasant 72-year-old patient who follows with Dr. Locke. 01/08/2023: left hip arthroplasty, by Dr. Giovanni Phillips. Discharged January 09. Was doing well. Yesterday patient took a misstep on the stairs and fell and was caught by her . X-ray of the left hip was unremarkable. Computed tomography scan showed acute periprosthetic fracture involving the acetabulum at the superior acetabulum minimally displaced fracture. Hairline fracture extending into the inferior pubic gram eye. Deep-seated G changes. Left knee effusion. Patient has not had a bowel movement since she left the hospital. Currently in good spirits. Per orthopedics no surgical intervention. Nonweightbearing. at the bedside. Considering rehab. January 14: Sitting up in bed. Comforter. No new issues. She has not allowed toe- touch weight bearing. On the left lower extremity with walker. Still constipated from yesterday. Dulcolax given. If no BM then received a soapsuds. Lactulose was given yesterday. PTOT assessment decide about rehab Active Medications Acetaminophen (Acetaminophen Tab 325 Mg Tab) 650 mg PO Q6HR [facility] Last Admin: 01/14/23 18:20 Dose: 650 mg Alprazolam (Alprazolam 0.5 Mg Tab) 0.5 mg PO BID PRN PRN Reason: Anxiety Apixaban (Apixaban 5 Mg Tab) 5 mg PO BID [facility]; Protocol Last Admin: 01/14/23 08:02 Dose: 5 mg Gabapentin (Gabapentin 100 Mg Cap) 100 mg PO BID [facility] Last Admin: 01/14/23 08:02 Dose: 100 mg Metoprolol Tartrate (Metoprolol Tartrate 50 Mg Tab) 50 mg PO BID [facility] Last Admin: 01/14/23 08:02 Dose: 50 mg Naloxone HCl (Naloxone 0.4 Mg/Ml 1 Ml Vial) 0.2 mg IV Q2M PRN PRN Reason: Opioid Reversal Ondansetron HCl (Ondansetron Odt 4 Mg Tab) 4 mg PO Q8HR PRN PRN Reason: Nausea Pantoprazole Sodium (Pantoprazole 40 Mg Tablet) 40 mg PO AC-BRKFST [facility] Last Admin: 01/14/23 08:02 Dose: 40 mg Potassium Chloride (Potassium Chloride Er 10 Meq Tab.Er.Prt) 10 meq PO DAILY [facility] Last Admin: 01/14/23 08:02 Dose: 10 meq Pravastatin Sodium (Pravastatin Sodium 40 Mg Tab) 40 mg PO HS [facility] Last Admin: 01/13/23 21:43 Dose: 40 mg Senna (Sennosides 8.6 Mg Tab) 17.2 mg PO DAILY PRN PRN Reason: Constipation Last Admin: 01/14/23 08:10 Dose: 17.2 mg Past medical history to include: Diabetes mellitus type 2, DVT large PE that had to be extracted, GERD, hypertension, hyperlipidemia, osteoarthritis, left breast cancer in 2014 with reoccurrence in 2020. Follows with [address] Swann. Estrogen positive. Varicose veins. Diabetes mellitus type 2 diet controlled. Anxiety. Social history: . No smoking no alcohol. Physical examination: VITAL SIGNS: 98.4, 94, 18, 129/84, 95% room air GENERAL: Sitting up in bed, comfortable EYES: Pupils equal. Conjunctiva normal. HEENT: External appearance of nose and ears normal, oral cavity grossly normal. NECK: JVD not raised; masses not palpable. HEART: First and second heart sounds are normal; no edema. LUNGS: Respiratory rate normal; clear to auscultation. ABDOMEN: Soft, nontender, liver spleen not palpable, no masses palpable. PSYCH: Alert and oriented x3; mood and affect normal. MUSCULOSKELETAL:No Clubbing/cyanosis;muscles-grossly intact. OA. Limited range of motion left hip. INVESTIGATIONS, reviewed in the clinical context: January 12: White count 4.5 hemoglobin 10.3 platelets 170 potassium 3.[address] scans left hip:acute periprosthetic fracture involving the acetabulum at the superior acetabulum minimally displaced fracture. Hairline fracture extending into the inferior pubic gram eye. Deep-seated G changes. Left knee effusion. Previous labs January 09: White count 6.6 hemoglobin 11.1 platelets 152 Assessment and plan: -Acute left hip periprosthetic fracture involving the acetabulum at the superior astragal of minimally displaced fracture. Hairline fracture extending into the inferior pubic rami. No surgical intervention. Toe-touch weightbearing with walker allowed.. Pain control. -Left total hip arthroplasty on January [address] Giovanni Sinclair. -Acute postprocedure blood loss anemia expected from surgery Ferrous sulfate -Breast cancer, estrogen positive with recurrence Follows with Dr. Swann -Diabetes mellitus type 2, diet controlled -History of DVT large PE. eliquis -GERD PPI -Hyperlipidemia Pravachol 40 mg daily at bedtime -Essential hypertension Lopressor 50 mg twice a day. Hold hydrochlorothiazide. Hold Zestril for now. -Primary osteoarthritis Pain control when necessary -Obesity BMI 32.1 Weight loss measures. -Anxiety not otherwise specified Xanax when necessary Discussed with patient and at the bedside. PTOT evaluation will decide about rehab. Questions answered Thank you Dr. Phillips
[2023-01-14 20:42] LABS: Glucose,Whole Blood 189 mg/dL (70-110)
[2023-01-14] MEDS: PRAVASTATIN SODIUM 40 MG TAB PO SCH (21:57)
[2023-01-14] MEDS: ALPRAZolam 0.5 MG TAB PO PRN (21:57)
[2023-01-15] MEDS: ACETAMINOPHEN TAB 325 MG TAB PO SCH ×5 (00:23→23:02)
[2023-01-15 06:24] LABS: Glucose,Whole Blood 136 mg/dL (70-110)
[2023-01-15] MEDS: GABAPENTIN 100 MG CAP PO SCH ×2 (08:48→20:04)
[2023-01-15] MEDS: POTASSIUM CHLORIDE ER 10 MEQ TAB.ER.PRT PO SCH (08:49)
[2023-01-15] MEDS: APIXABAN 5 MG TAB PO SCH ×2 (08:49→20:04)
[2023-01-15] MEDS: METOPROLOL TARTRATE 50 MG TAB PO SCH ×2 (08:49→20:04)
[2023-01-15] MEDS: PANTOPRAZOLE 40 MG TABLET PO SCH (08:49)
[2023-01-15 11:34] LABS: Glucose,Whole Blood 111 mg/dL (70-110)
--- NOTE | 2023-01-15 11:56 | XR ---
EXAMINATION TYPE: XR Hip Limited RT DATE OF EXAM: 01/15/2023 COMPARISON: NONE HISTORY: Pain TECHNIQUE: One view submitted. FINDINGS: There is postsurgical change compatible hip replacement surgery. IMPRESSION: 1. Postoperative change. Appears in near-anatomic alignment.
--- NOTE | 2023-01-15 12:36 | P.PN ---
Subjective Progress Note Date: 01/15/23 This is a 72 year old female who is admitted for a periprosthetic fracture after a fall on 01/12/2023. Patient is status post left total hip arthroplasty with direct anterior approach on 01/08/2023. Patient is seen and evaluated at bedside today. Patient states that her left knee pain is improving and she has not had any significant pain in the left hip today. Patient states that she has noticed some pain in the right hip when maneuvering on and off the bed erazo. Patient states that she has not been out of bed at all since her admission. Objective - Vital Signs Vital signs: Vital Signs Temp 98.0 F 01/15/23 08:00 Pulse 79 01/15/23 08:00 Resp 16 01/15/23 08:00 BP 141/78 01/15/23 08:00 Pulse Ox 97 01/15/23 08:00 FiO2 Intake & Output 01/14/23 01/15/23 01/15/23 18:59 06:59 18:59 Intake Total 1080 240 Output Total 1200 400 Balance -120 -400 240 Intake: Oral 1080 240 Output: Urine 1200 400 Other: Voiding Method External Catheter # Bowel Movements 1 - Exam On exam patient is resting comfortably in bed in no acute distress. Patient is alert and oriented x3. Patient has full motion of the right hip without pain or difficulty. Patient is able to actively flex and extend the left knee with some limitation. Mild effusion of the left knee. No significant pain in the left hip with flexion and extension. Calves are soft and nontender to palpation. Sensation intact. Neurovascular status and circulatory status are intact. - Labs CBC & Chem 7: 01/12/23 22:02 01/12/23 22:02 Labs: Abnormal Lab Results - Last 24 Hours (Table) 01/14/23 01/14/23 01/15/23 Range/Units 16:44 20:40 06:22 POC Glucose (mg/dL) 140 H 189 H 136 H (70-110) mg/dL Assessment and Plan (1) Degenerative arthritis of left knee Current Visit: Yes Status: Acute Code(s): M17.12 - UNILATERAL PRIMARY OSTEOARTHRITIS, LEFT KNEE SNOMED Code(s): 836812483078225 (2) Effusion, left knee Current Visit: Yes Status: Acute Code(s): M25.462 - EFFUSION, LEFT KNEE SNOMED Code(s): 156763921279488 (3) Periprosthetic fracture around internal prosthetic hip joint Current Visit: Yes Status: Acute Code(s): M97.8XXA - PERIPROSTH FRACTURE AROUND OTHER INTERNAL PROSTH JOINT, INIT; Z96.649 - PRESENCE OF UNSPECIFIED ARTIFICIAL HIP JOINT SNOMED Code(s): 277592150 (4) S/P total hip arthroplasty Current Visit: No Status: Acute Code(s): Z96.649 - PRESENCE OF UNSPECIFIED ARTIFICIAL HIP JOINT SNOMED Code(s): 544326073140 Plan: 1. X-rays of the right hip are negative. 2. Patient is remain TTWB for the left lower extremity. 3. Physical therapy for mobilization. 4. Anticipate discharge home with home care or to ECF in the next 24-48 hours.
[2023-01-15 16:58] LABS: Glucose,Whole Blood 112 mg/dL (70-110)
--- NOTE | 2023-01-15 19:35 | P.PN ---
Progress Note - Text Progress Note Date: 01/15/23 - Chief Complaint Left hip pain Hospital course: pleasant 72-year-old patient who follows with Dr. Locke. 01/08/2023: left hip arthroplasty, by Dr. Giovanni Phillips. Discharged January 09. Was doing well. Yesterday patient took a misstep on the stairs and fell and was caught by her . X-ray of the left hip was unremarkable. Computed tomography scan showed acute periprosthetic fracture involving the acetabulum at the superior acetabulum minimally displaced fracture. Hairline fracture extending into the inferior pubic gram eye. Deep-seated G changes. Left knee effusion. Patient has not had a bowel movement since she left the hospital. Currently in good spirits. Per orthopedics no surgical intervention. Nonweightbearing. at the bedside. Considering rehab. January 14: Sitting up in bed. Comforter. No new issues. She has not allowed toe- touch weight bearing. On the left lower extremity with walker. Still constipated from yesterday. Dulcolax given. If no BM then received a soapsuds. Lactulose was given yesterday. PTOT assessment decide about rehab January 15: Sitting up. Comfortable. Looking to going to rehab. Seen by PTOT. Discussed with patient and . Active Medications Acetaminophen (Acetaminophen Tab 325 Mg Tab) 650 mg PO Q6HR [facility] Last Admin: 01/15/23 17:17 Dose: 650 mg Alprazolam (Alprazolam 0.5 Mg Tab) 0.5 mg PO BID PRN PRN Reason: Anxiety Last Admin: 01/14/23 21:57 Dose: 0.5 mg Apixaban (Apixaban 5 Mg Tab) 5 mg PO BID [facility]; Protocol Last Admin: 01/15/23 08:49 Dose: 5 mg Gabapentin (Gabapentin 100 Mg Cap) 100 mg PO BID [facility] Last Admin: 01/15/23 08:48 Dose: 100 mg Metoprolol Tartrate (Metoprolol Tartrate 50 Mg Tab) 50 mg PO BID [facility] Last Admin: 01/15/23 08:49 Dose: 50 mg Naloxone HCl (Naloxone 0.4 Mg/Ml 1 Ml Vial) 0.2 mg IV Q2M PRN PRN Reason: Opioid Reversal Ondansetron HCl (Ondansetron Odt 4 Mg Tab) 4 mg PO Q8HR PRN PRN Reason: Nausea Pantoprazole Sodium (Pantoprazole 40 Mg Tablet) 40 mg PO AC-BRKFST [facility] Last Admin: 01/15/23 08:49 Dose: 40 mg Potassium Chloride (Potassium Chloride Er 10 Meq Tab.Er.Prt) 10 meq PO DAILY [facility] Last Admin: 01/15/23 08:49 Dose: 10 meq Pravastatin Sodium (Pravastatin Sodium 40 Mg Tab) 40 mg PO HS [facility] Last Admin: 01/14/23 21:57 Dose: 40 mg Senna (Sennosides 8.6 Mg Tab) 17.2 mg PO DAILY PRN PRN Reason: Constipation Last Admin: 01/14/23 08:10 Dose: 17.2 mg Past medical history to include: Diabetes mellitus type 2, DVT large PE that had to be extracted, GERD, hypertension, hyperlipidemia, osteoarthritis, left breast cancer in 2014 with reoccurrence in 2020. Follows with Dr[address] Swann. Estrogen positive. Varicose veins. Diabetes mellitus type 2 diet controlled. Anxiety. Social history: . No smoking no alcohol. Physical examination: VITAL SIGNS: 98, 79, 16, 141/78, 97% room air GENERAL: Sitting up in bed, comfortable EYES: Pupils equal. Conjunctiva normal. HEENT: External appearance of nose and ears normal, oral cavity grossly normal. NECK: JVD not raised; masses not palpable. HEART: First and second heart sounds are normal; no edema. LUNGS: Respiratory rate normal; clear to auscultation. ABDOMEN: Soft, nontender, liver spleen not palpable, no masses palpable. PSYCH: Alert and oriented x3; mood and affect normal. MUSCULOSKELETAL:No Clubbing/cyanosis;muscles-grossly intact. OA. Limited range of motion left hip. INVESTIGATIONS, reviewed in the clinical context: January 12: White count 4.5 hemoglobin 10.3 platelets 170 potassium 3.[address] scans left hip:acute periprosthetic fracture involving the acetabulum at the superior acetabulum minimally displaced fracture. Hairline fracture extending into the inferior pubic gram eye. Deep-seated G changes. Left knee effusion. Previous labs January 09: White count 6.6 hemoglobin 11.1 platelets 152 Assessment and plan: -Acute left hip periprosthetic fracture involving the acetabulum at the superior astragal of minimally displaced fracture. Hairline fracture extending into the inferior pubic rami. No surgical intervention. Toe-touch weightbearing with walker allowed.. Pain control. -Left total hip arthroplasty on January [address] Giovanni Sinclair. -Acute postprocedure blood loss anemia expected from surgery Ferrous sulfate -Breast cancer, estrogen positive with recurrence Follows with Dr. Swann -Diabetes mellitus type 2, diet controlled -History of DVT large PE. eliquis -GERD PPI -Hyperlipidemia Pravachol 40 mg daily at bedtime -Essential hypertension Lopressor 50 mg twice a day. Hold hydrochlorothiazide. Hold Zestril for now. -Primary osteoarthritis Pain control when necessary -Obesity BMI 32.1 Weight loss measures. -Anxiety not otherwise specified Xanax when necessary Discussed with patient and at the bedside. Pending rehab. Other medications to continue. Thank you Dr. Phillips
[2023-01-15] MEDS: PRAVASTATIN SODIUM 40 MG TAB PO SCH (20:04)
[2023-01-15 20:51] LABS: Glucose,Whole Blood 133 mg/dL (70-110)
[2023-01-15] MEDS: ALPRAZolam 0.5 MG TAB PO PRN (22:17)
[2023-01-16 05:57] LABS: Glucose,Whole Blood 117 mg/dL (70-110)
[2023-01-16] MEDS: PANTOPRAZOLE 40 MG TABLET PO SCH (06:53)
[2023-01-16] MEDS: SENNOSIDES 8.6 MG TAB PO PRN (06:54)
[2023-01-16] MEDS: ACETAMINOPHEN TAB 325 MG TAB PO SCH ×2 (06:54→11:47)
[2023-01-16] MEDS: GABAPENTIN 100 MG CAP PO SCH (09:18)
[2023-01-16] MEDS: APIXABAN 5 MG TAB PO SCH (09:18)
[2023-01-16] MEDS: POTASSIUM CHLORIDE ER 10 MEQ TAB.ER.PRT PO SCH (09:19)
[2023-01-16] MEDS: METOPROLOL TARTRATE 50 MG TAB PO SCH (09:19)
[2023-01-16 11:13] LABS: Glucose,Whole Blood 112 mg/dL (70-110)
--- NOTE | 2023-01-16 13:04 | P.DS ---
Providers Date of admission: 01/12/23 20:58 Expected date of discharge: 01/16/23 Attending physician: Giovanni Phillips Consults: 01/13/23 09:00 Consult Physician Routine Consulting Provider: Magen Tse Consult Reason/Comments: Medical Management Do you want consulting provider notified?: Yes Primary care physician: Ishaan Locke - Discharge Diagnosis(es) (1) Degenerative arthritis of left knee Current Visit: Yes Status: Acute (2) Effusion, left knee Current Visit: Yes Status: Acute (3) Periprosthetic fracture around internal prosthetic hip joint Current Visit: Yes Status: Acute (4) S/P total hip arthroplasty Current Visit: No Status: Acute Hospital Course: This is an 72-year-old female who sustained a periprosthetic fracture of the left hip after a fall at home on 01/12/2023. Patient is status post left total hip arthroplasty on 01/08/2023. The patient presented for evaluation in the emergency room and x-rays revealed periprosthetic fracture of the left total hip. Patient is admitted to [facility] on 01/12/2023 . Labs and vital signs are stable on day of discharge. On day of discharge patient's hip incision is healing well. There is minimal erythema. There is no drainage noted at this time. There is minimal soft tissue swelling to the hip and thigh. Patient has full foot and ankle motion without difficulty or pain. Calf is soft and nontender to palpation. Neurovascular status to the left lower extremity is intact. Patient is discharged to rehab in good condition. Please see med rec for accurate list of home medications. Patient Condition at Discharge: Good Plan - Discharge Summary Discharge Rx Participant: No New Discharge Prescriptions: New Acetaminophen Tab [Tylenol] 650 mg PO Q6HR tab Continue Pravastatin Sodium 40 mg PO HS Potassium Chloride [Klor-Con 10 ER] 10 meq PO DIRECTED Metoprolol Tartrate [Lopressor] 50 mg PO BID Fulvestrant 1 dose IM Q30D Apixaban [Eliquis] 5 mg PO BID Ferrous Sulfate [Feosol] 325 mg PO DIRECTED Sennosides [Senokot] 17.2 tab PO DAILY PRN PRN Reason: Constipation Omeprazole 20 mg PO DAILY Palbociclib [Ibrance] 125 mg PO DIRECTED Ondansetron Odt [Zofran ODT] 4 mg PO Q8HR PRN PRN Reason: Nausea Gabapentin [Neurontin] 100 mg PO BID #6 cap ALPRAZolam [Xanax] 0.5 mg PO BID PRN #6 tab PRN Reason: Anxiety Discontinued hydroCHLOROthiazide [Hydrodiuril] 25 mg PO DIRECTED lisinopriL [Zestril] 5 mg PO DIRECTED Acetaminophen-Codeine 300-30mg [Tylenol #3] 1 - 2 tab PO Q6H PRN #30 tablet PRN Reason: Pain Discharge Medication List Metoprolol Tartrate [Lopressor] 50 mg PO BID 04/08/15 [History] Potassium Chloride [Klor-Con 10 ER] 10 meq PO DIRECTED 04/08/15 [History] Pravastatin Sodium 40 mg PO HS 04/08/15 [History] Omeprazole 20 mg PO DAILY 01/17/21 [History] Fulvestrant 1 dose IM Q30D 05/18/21 [History] Palbociclib [Ibrance] 125 mg PO DIRECTED 05/18/21 [History] Apixaban [Eliquis] 5 mg PO BID 01/02/23 [History] Ferrous Sulfate [Feosol] 325 mg PO DIRECTED 01/12/23 [History] Ondansetron Odt [Zofran ODT] 4 mg PO Q8HR PRN 01/12/23 [History] Sennosides [Senokot] 17.2 tab PO DAILY PRN 01/12/23 [History] ALPRAZolam [Xanax] 0.5 mg PO BID PRN #6 tab 01/15/23 [Rx] Acetaminophen Tab [Tylenol] 650 mg PO Q6HR tab 01/15/23 [Rx] Gabapentin [Neurontin] 100 mg PO BID #6 cap 01/15/23 [Rx] Follow up Appointment(s)/Referral(s): Ishaan Locke MD [Primary Care Provider] - 1-2 days Activity/Diet/Wound Care/Special Instructions: [facility] Toe-touch weightbearing to the left lower extremity. Daily dressing changes. May shower if no drainage from the incision. Please continue Eliquis. Recommend use of compression stockings daily until follow up to help prevent swelling and blood clots. May remove at night before sleeping. Please follow-up with [facility] in 2 weeks and call with any questions or concerns, . Discharge Disposition: TRANSFER TO SNF/ECF
[2023-01-16 13:38] VITALS: BP 122/79; PULSE 84; RESP 16; TEMP 98
--- NOTE | 2023-01-16 21:58 | P.PN ---
Progress Note - Text Progress Note Date: 01/16/23 - Chief Complaint Left hip pain Hospital course: pleasant 72-year-old patient who follows with Dr. Locke. 01/08/2023: left hip arthroplasty, by Dr. Giovanni Phillips. Discharged January 09. Was doing well. Yesterday patient took a misstep on the stairs and fell and was caught by her . X-ray of the left hip was unremarkable. Computed tomography scan showed acute periprosthetic fracture involving the acetabulum at the superior acetabulum minimally displaced fracture. Hairline fracture extending into the inferior pubic gram eye. Deep-seated G changes. Left knee effusion. Patient has not had a bowel movement since she left the hospital. Currently in good spirits. Per orthopedics no surgical intervention. Nonweightbearing. at the bedside. Considering rehab. January 14: Sitting up in bed. Comforter. No new issues. She has not allowed toe- touch weight bearing. On the left lower extremity with walker. Still constipated from yesterday. Dulcolax given. If no BM then received a soapsuds. Lactulose was given yesterday. PTOT assessment decide about rehab January 15: Sitting up. Comfortable. Looking to going to rehab. Seen by PTOT. Discussed with patient and . January 16: Doing well. Pain control. Going to rehab today. Discussed with patient. Questions answered. Current medications reviewed Past medical history to include: Diabetes mellitus type 2, DVT large PE that had to be extracted, GERD, hype rtension, hyperlipidemia, osteoarthritis, left breast cancer in 2014 with reoccurrence in 2020. Follow[address] Swann. Estrogen positive. Varicose veins. Diabetes mellitus type 2 diet controlled. Anxiety. Social history: . No smoking no alcohol. Physical examination: VITAL SIGNS: 98.2, 86, 15, 116/72, 98% room air GENERAL: Sitting up in bed, comfortable EYES: Pupils equal. Conjunctiva normal. HEENT: External appearance of nose and ears normal, oral cavity grossly normal. NECK: JVD not raised; masses not palpable. HEART: First and second heart sounds are normal; no edema. LUNGS: Respiratory rate normal; clear to auscultation. ABDOMEN: Soft, nontender, liver spleen not palpable, no masses palpable. PSYCH: Alert and oriented x3; mood and affect normal. MUSCULOSKELETAL:No Clubbing/cyanosis;muscles-grossly intact. OA. Limited range of motion left hip. INVESTIGATIONS, reviewed in the clinical context: COVID-19: Not detected January 12: White count 4.5 hemoglobin 10.3 platelets 170 potassium 3.[address] scans left hip:acute periprosthetic fracture involving the acetabulum at the superior acetabulum minimally displaced fracture. Hairline fracture extending into the inferior pubic gram eye. Deep-seated G changes. Left knee effusion. Previous labs January 09: White count 6.6 hemoglobin 11.1 platelets 152 Assessment and plan: -Acute left hip periprosthetic fracture involving the acetabulum at the superior astragal of minimally displaced fracture. Hairline fracture extending into the inferior pubic rami. No surgical intervention. Toe-touch weightbearing with walker allowed.. Pain control. -Left total hip arthroplasty on January [address] Giovanni Sinclair. -Acute postprocedure blood loss anemia expected from surgery Ferrous sulfate -Breast cancer, estrogen positive with recurrence Follows with Dr. Swann -Diabetes mellitus type 2, diet controlled -History of DVT large PE. eliquis -GERD PPI -Hyperlipidemia Pravachol 40 mg daily at bedtime -Essential hypertension Lopressor 50 mg twice a day. Hold hydrochlorothiazide. Hold Zestril for now. -Primary osteoarthritis Pain control when necessary -Obesity BMI 32.1 Weight loss measures. -Anxiety not otherwise specified Xanax when necessary Discussed with patient . Continue current medications. Thank you Dr. Phillips
== END 2023-01-16 15:14 | DRG 559 ==
LOC: EC 16:02 → 4SSUR 20:58
PROVIDERS: ADMIT Orthopaedic Surgery; ATTEND Orthopaedic Surgery
DX: M97.02XA Periprosthetic fracture around internal prosthetic left hip joint, initial encounter (principal); S32.402A Unspecified fracture of left acetabulum, initial encounter for closed fracture; D62 Acute posthemorrhagic anemia; K21.9 Gastro-esophageal reflux disease without esophagitis; K59.00 Constipation, unspecified; M17.12 Unilateral primary osteoarthritis, left knee; I83.90 Asymptomatic varicose veins of unspecified lower extremity; I10 Essential (primary) hypertension; F40.240 Claustrophobia; F41.9 Anxiety disorder, unspecified; E78.5 Hyperlipidemia, unspecified; E66.9 Obesity, unspecified; Z68.32 Body mass index [BMI] 32.0-32.9, adult; W01.0XXA Fall on same level from slipping, tripping and stumbling without subsequent striking against object, initial encounter; E11.9 Type 2 diabetes mellitus without complications; C50.912 Malignant neoplasm of unspecified site of left female breast; Z17.0 Estrogen receptor positive status [ER+]; Z82.49 Family history of ischemic heart disease and other diseases of the circulatory system; Z86.718 Personal history of other venous thrombosis and embolism; Z90.12 Acquired absence of left breast and nipple; Z96.641 Presence of right artificial hip joint; M25.462 Effusion, left knee; Z20.822 Contact with and (suspected) exposure to COVID-19; Z79.899 Other long term (current) drug therapy; Z83.3 Family history of diabetes mellitus; Z88.5 Allergy status to narcotic agent; Z88.0 Allergy status to penicillin; Z88.2 Allergy status to sulfonamides; Z96.642 Presence of left artificial hip joint; Y92.008 Other place in unspecified non-institutional (private) residence as the place of occurrence of the external cause
CPT/HCPCS: 73501; 73502; 80053; 83735; 84100; 84484; 85025; 85610; 85730; 87635; 93005

== ENCOUNTER → 2023-05-29 | Outpatient (CLI) | payer MEDICARE, OTHER ==
--- NOTE | 2023-05-29 15:21 | US ---
EXAMINATION TYPE: US venous doppler duplex LE LT DATE OF EXAM: 05/29/2023 2:52 PM COMPARISON: NONE CLINICAL INDICATION: Female, 73 years old with history of SWELLING R22.42; Hx DVT LLE; Patient on bl ood thinners SIDE PERFORMED: Left TECHNIQUE: The lower extremity deep venous system is examined utilizing real time linear array sonog sarah with graded compression, doppler sonography and color-flow sonography. VESSELS IMAGED: Common Femoral Vein Deep Femoral Vein Greater Saphenous Vein * Femoral Vein Popliteal Vein Small Saphenous Vein * Proximal Calf Veins (* superficial vessels) Right Leg: Not fully evaluated Left Leg: Inside Outside Sales Representative notes: Positive for DVT. ?Chronic DVT mid left femoral vein, ?acute distal fem oral vein to proximal popliteal vein. Dr. Blackmon said to send patient home IMPRESSION: Exam positive for nonocclusive DVT extending from the mid femoral vein down into the upper popliteal vein. Given overall small vessel caliber and some internal flow, chronic DVT is favored. Clinically c orrelate. No occlusive DVT identified from the groin down into the upper calf.
== END | disposition home or self-care (01) ==
LOC: RADUSWWP 14:32
PROVIDERS: ATTEND Internal Medicine Hematology & Oncology
DX: I82.412 Acute embolism and thrombosis of left femoral vein (principal); R22.42 Localized swelling, mass and lump, left lower limb; Z79.01 Long term (current) use of anticoagulants

== ENCOUNTER → 2023-06-12 | Outpatient (CLI) | payer MEDICARE, OTHER ==
--- NOTE | 2023-06-12 10:51 | US ---
EXAMINATION TYPE: US venous doppler duplex LE LT DATE OF EXAM: 06/12/2023 10:41 AM COMPARISON: US 05/29/2023 CLINICAL INDICATION: Female, 73 years old with history of R22.42 swelling; Swelling. Recent US showed DVT. Patient has been on Eliquis since 2021. Patient had left hip replaced January 2023. SIDE PERFORMED: Left TECHNIQUE: The lower extremity deep venous system is examined utilizing real time linear array sonog sarah with graded compression, doppler sonography and color-flow sonography. VESSELS IMAGED: Common Femoral Vein Deep Femoral Vein Greater Saphenous Vein * Femoral Vein Popliteal Vein Small Saphenous Vein * Proximal Calf Veins (* superficial vessels) Left Leg: There is mural-based echogenicity with small vessel caliber and attenuated color flow exte nding from the mid femoral vein down into the mid popliteal vein, fairly similar to prior exam. No oc clusive thrombus is seen from the groin into the upper calf. IMPRESSION: Fairly similar chronic, incompletely occlusive DVT of the left lower extremity extending from the mid femoral vein down into the mid popliteal vein.
== END | disposition home or self-care (01) ==
LOC: RADUSWWP 10:07
PROVIDERS: ATTEND Internal Medicine Hematology & Oncology
DX: I82.412 Acute embolism and thrombosis of left femoral vein (principal); I82.532 Chronic embolism and thrombosis of left popliteal vein; I82.512 Chronic embolism and thrombosis of left femoral vein; R22.42 Localized swelling, mass and lump, left lower limb; Z79.01 Long term (current) use of anticoagulants

== ENCOUNTER → 2023-11-15 | Outpatient (CLI) | payer MEDICARE, OTHER ==
--- NOTE | 2023-11-15 13:48 | MM ---
Reason for Exam: Additional evaluation requested from prior study. Last mammogram was performed 1 year(s) and 3 month(s) ago. Patient History: Menarche at age 14. First Full-Term at age 23. Postmenopausal. Breast cancer, left, age 64. Previous chest radiation therapy at age 65. Previous chemotherapy at age 65. Hormonal Contraceptives for 14 years from age 19 until age 33. Benign Ultrasound-Guided Core Biopsy. Excisional Biopsy on the Right side. 2014, Mastectomy on the Left side. 03/29/2015, Malignant Core Biopsy on the left side. 03/29/2015, Malignant Core Biopsy on the left side. 2014, Chemotherapy. 2014, Radiation Therapy on the left side. 05/25/2021, US discontinued breast bx RT on the right side. Maternal aunt had breast cancer, age 80. Maternal aunt had breast cancer, age 64. Prior Study Comparison: 05/09/2021 Right Diagnostic Mammogram, [facility]. 08/18/2021 Right Diagnostic Mammogram, [facility]. 08/21/2022 Right MG 3D diag mammo w/cad RT, [facility]. Tissue Density: Right: The breasts are heterogeneously dense, which may obscure small masses. Findings: Analyzed By CAD. A few benign oil cyst calcifications are redemonstrated. Grouped coarse calcification central inner aspect of the breast are unchanged. Focal asymmetry lower inner quadrant anterior depth remains unchanged. No significant change from prior exams. Overall Assessment: Benign, BI-RAD 2 Management: Screening Mammogram of the right breast in 1 year. . Results were given to the patient verbally at the time of exam. Patient should continue monthly self-breast exams. A clinical breast exam by your physician is recommended on an annual basis. This exam should not preclude additional follow-up of suspicious palpable abnormalities. Electronically signed and approved by: Geraldine Edge M.D. Radiologist
== END | disposition home or self-care (01) ==
LOC: RADMAMWWP 13:22
PROVIDERS: ATTEND Internal Medicine Hematology & Oncology
DX: C50.512 Malignant neoplasm of lower-outer quadrant of left female breast (principal); I26.92 Saddle embolus of pulmonary artery without acute cor pulmonale; R92.331 Mammographic heterogeneous density, right breast; G62.0 Drug-induced polyneuropathy; I10 Essential (primary) hypertension; Z78.0 Asymptomatic menopausal state; Z71.3 Dietary counseling and surveillance; Z80.3 Family history of malignant neoplasm of breast
CPT/HCPCS: 77065; G0279; 77061

== ENCOUNTER → 2024-11-17 | Outpatient (CLI) | payer MEDICARE, OTHER ==
--- NOTE | 2024-11-17 11:41 | MM ---
Reason for Exam: Hx of breast cancer, mastectomy. Last screening mammogram was performed 12 month(s) ago. Patient History: Menarche at age 14. First Full-Term at age 23. Postmenopausal. Breast cancer, left, age 64. Previous chest radiation therapy at age 65. Previous chemotherapy at age 65. Hormonal Contraceptives for 14 years from age 19 until age 33. Benign Ultrasound-Guided Core Biopsy. Excisional Biopsy on the Right side. 2014, Mastectomy on the Left side. 03/29/2015, Malignant Core Biopsy on the left side. 03/29/2015, Malignant Core Biopsy on the left side. 2014, Chemotherapy. 2014, Radiation Therapy on the left side. 05/25/2021, US discontinued breast bx RT on the right side. Maternal aunt had breast cancer, age 80. Maternal aunt had breast cancer, age 64. Prior Study Comparison: 08/18/2021 Right Diagnostic Mammogram, [facility]. 08/21/2022 Right MG 3D diag mammo w/cad RT, [facility]. 11/15/2023 Right MG 3D diag mammo w/cad RT, [facility]. Tissue Density: Right: The breasts are heterogeneously dense, which may obscure small masses. Findings: Analyzed By CAD. There are scattered and grouped benign-appearing round calcifications redemonstrated throughout the right breast. Benign-appearing right axillary lymph nodes are redemonstrated. Overall Assessment: Benign, BI-RAD 2 Management: Screening Mammogram of the right breast in 1 year. Return to routine follow-up. Results were given to the patient verbally at the time of exam. Patient should continue monthly self-breast exams. A clinical breast exam by your physician is recommended on an annual basis. This exam should not preclude additional follow-up of suspicious palpable abnormalities. Note on Sonya scores and lifetime risk: 1. A Sonya score greater than 3% is considered moderate risk. If this is the case, consider specialist referral to assess eligibility for a risk reducing agent. 2. If overall lifetime risk for the development of breast cancer is 20% or higher, the patient may qualify for future screening with alternating mammogram and breast MRI. [facility], , 11/17/2024 11:36 AM. Electronically signed and approved by: Ar Corona M.D.
== END | disposition home or self-care (01) ==
LOC: RADMAMWWP 11:09
PROVIDERS: ATTEND Internal Medicine Hematology & Oncology
DX: C50.512 Malignant neoplasm of lower-outer quadrant of left female breast (principal); R92.331 Mammographic heterogeneous density, right breast; R92.1 Mammographic calcification found on diagnostic imaging of breast; Z78.0 Asymptomatic menopausal state; Z85.3 Personal history of malignant neoplasm of breast; G62.0 Drug-induced polyneuropathy; I10 Essential (primary) hypertension; Z80.3 Family history of malignant neoplasm of breast; I26.92 Saddle embolus of pulmonary artery without acute cor pulmonale
CPT/HCPCS: 77065; G0279; 77061